=== PATIENT | female | born 1940 | race Caucasian/White ===

== ENCOUNTER 2016-05-25 20:10 | Emergency (ER) | payer OTHER, MEDICARE ==
[2016-05-25 20:21] VITALS: BP 138/56; PULSE 74; TEMP 98.8; BMI 22.6
--- NOTE | 2016-05-25 21:58 | PDOC ---
History of Present Illness - General Chief Complaint: Choking Sensation Stated Complaint: CHOKING SENSATION Time Seen by Provider: 05/25/16 21:28 History Source: Patient Exam Limitations: No Limitations - History of Present Illness Initial Comments: 05/25/16 21:53 75yo Female patient presented to ED by c/o foreign body stuck in throat. states this frequently happens, and patient has been scoped by Dr. Auguste (GI) in the past, he also reports that her esophagus has been stretched and cannot be stretched anymore. report patient has progressive Dementia and has had trouble swallowing. He has cut her food into very fine pieces and patient still struggles with swallowing. reports symptoms began around 8pm tonight. Timing/Duration: 1-3 hours Severity: mild Modifying Factors: worse with: cold therapy, eating, immobilization, medication , movement, rest, other Associated Symptoms: reports: denies symptoms Past History - Travel Traveled outside of the country in the last 30 days: No Close contact w/someone who was outside of country & ill: No - Past Medical History Allergies/Adverse Reactions: Allergies Allergy/AdvReac Type Severity Reaction Status Date / Time prochlorperazine edisylate Allergy Intermediate Verified 05/25/16 20:17 [From Compazine] Home Medications: Ambulatory Orders Budesonide/Formeterol Fumarate [SYMBICORT 80/4.5mcg -] 1 inh PO BID 12/08/15 Gabapentin [Neurontin -] 100 mg PO Q8H 12/08/15 Levothyroxine [Synthroid -] 50 mcg PO DAILY 12/08/15 Montelukast Na [Singulair -] 10 mg PO HS 12/08/15 Paroxetine HCl 40 mg PO HS 12/08/15 Risperidone [Risperidone Odt] 0.25 mg PO TID 12/08/15 Rosuvastatin Calcium [Crestor] 20 mg PO HS 12/08/15 Amlodipine Besylate [Norvasc -] 2.5 mg PO DAILY 02/16/16 Divalproex Sodium 125 mg PO QID 02/16/16 Anemia: No Asthma: No Cancer: No Cardiac Disorders: No CVA: Yes (mini stroke) COPD: Yes CHF: No Dementia: Yes Diabetes: No GI Disorders: Yes (HIATAL HERNIA, gerd) Disorders: No HTN: Yes (no meds at present) Hypercholesterolemia: Yes Liver Disease: No Seizures: No Thyroid Disease: Yes - Surgical History Abdominal Surgery: No Appendectomy: Yes Cardiac Surgery: No Cholecystectomy: No Lung Surgery: No Neurologic Surgery: (BL ENDARTERECTOMY) Orthopedic Surgery: Yes (neck surgery) - Immunization History Td Vaccination: Yes Immunization Up to Date: Yes - Psycho/Social/Smoking Cessation Hx Anxiety: Yes Suicidal Ideation: No Smoking Status: No Smoking History: Former smoker Years of Tobacco Use: 40 Have you smoked in the past 12 months: No Number of Cigarettes Smoked Daily: 0 If you are a former smoker, when did you quit?: 1YR Cigars Per Day: 0 Information on smoking cessation initiated: No 'Breaking Loose' booklet given: 04/27/12 Hx Alcohol Use: No Drug/Substance Use Hx: No Substance Use Type: None Hx Substance Use Treatment: No Review of Systems - Review of Systems Able to Perform ROS?: Yes Is the patient limited Haitian proficient: Yes Constitutional: No: Fever HEENTM: Yes: Difficulty Swallowing. No: Throat Pain, Throat Swelling Respiratory: No: Cough, Orthopnea, Shortness of Breath Cardiac (ROS): No: Chest Pain, Edema ABD/GI: No: Diarrhea, Nausea, Vomiting : No: Dysuria Musculoskeletal: No: Back Pain Integumentary: No: Rash Neurological: No: Numbness, Tingling, Dizziness All Other Systems: Reviewed and Negative *Physical Exam - Vital Signs Last Vital Signs Temp Pulse Resp BP Pulse Ox 98.8 F 74 18 138/56 92 L 05/25/16 20:19 05/25/16 20:19 05/25/16 20:19 05/25/16 20:19 05/25/16 20:19 - Physical Exam General Appearance: Yes: Thin HEENT: positive: Normal ENT Inspection, Pharynx Normal Neck: positive: Trachea midline, Supple Respiratory/Chest: positive: Lungs Clear, Decreased Breath Sounds, Other ( Likely due to poor inspiratory effort.) Cardiovascular: positive: Regular Rhythm, Regular Rate Gastrointestinal/Abdominal: positive: Normal Bowel Sounds, Soft Musculoskeletal: positive: Normal Inspection Extremity: positive: Normal Capillary Refill, Normal Inspection, Normal Range of Motion Integumentary: positive: Dry, Warm, Pale Neurologic: positive: Alert, Normal Mood/Affect, Normal Response ED Treatment Course - RADIOLOGY Radiology Studies Ordered: Category Date Time Status CHEST PA & LAT [RAD] Stat Radiology 05/25/16 21:38 Ordered NECK SOFT TISSUE [RAD] Stat Radiology 05/25/16 21:38 Ordered Medical Decision Making - Medical Decision Making 05/25/16 23:27 PATIENT GIVEN PO CHALLENGE. PATIENT TOLERATED 2 CUPS OF APPLE JUICE WITHOUT CHOKING OR TROUBLE MANAGING SALIVA. *DC/Admit/Observation/Transfer Diagnosis at time of Disposition: Foreign body in pharynx Qualifiers: Encounter type: initial encounter Qualified Code(s): T17.208A - Unspecified foreign body in pharynx causing other injury, initial encounter - Discharge Dispostion Disposition: HOME Condition at time of disposition: Good Admit: No - Patient Instructions Printed Discharge Instructions: Oropharyngeal Dysphagia Additional Instructions: FOLLOW UP WITH YOUR GASTOENTEROLOGIST THIS WEEK. CALL TO SCHEDULE APPOINTMENT. YOU SHOULD ALSO FOLLOW UP WITH A SPEECH PATHOLOGIST TO DETERMINE THE CONSISTENCY OF FOOD YOUR SHOULD BE EATING. SHE MAY NEED PUREE FOODS. MONITOR FOR FEVER, COUGH, OR ANY OTHER CONCERNS AND RETURN FOR FURTHER EVALUATION. Print Language: VIETNAMESE
== END 2016-05-25 23:44 | disposition home or self-care (01) ==
LOC: JER 20:10
DX: T17.208A Unspecified foreign body in pharynx causing other injury, initial encounter (principal); X58.XXXA Exposure to other specified factors, initial encounter; Y93.9 Activity, unspecified; Y92.9 Unspecified place or not applicable; F03.90 Unspecified dementia, unspecified severity, without behavioral disturbance, psychotic disturbance, mood disturbance, and anxiety; Z86.73 Personal history of transient ischemic attack (TIA), and cerebral infarction without residual deficits; J44.9 Chronic obstructive pulmonary disease, unspecified; K44.9 Diaphragmatic hernia without obstruction or gangrene; K21.9 Gastro-esophageal reflux disease without esophagitis; I10 Essential (primary) hypertension; E78.00 Pure hypercholesterolemia, unspecified; E07.9 Disorder of thyroid, unspecified; Z87.891 Personal history of nicotine dependence
CPT/HCPCS: 70360-TC; 71020-TC; 99281-25

== ENCOUNTER 2016-08-06 00:03 | Inpatient (IN) | payer OTHER, MEDICARE ==
--- NOTE | 2016-08-06 00:47 | PDOC ---
History of Present Illness <ShakiraHollyDenis dean - Last Filed: 08/06/16 01:00> - General History Source: Spouse ( ) Exam Limitations: Dementia - History of Present Illness Initial Comments: 08/06/16 00:59 The patient is a 76 year old female with significant past medical history of depression, stricture, stroke, COPD, dementia, GERD, hernia, hypertension, hyperlipidemia, and hypothyroidism who presents to the ED BIBA from home with laceration on right cheek s/p unwitnessed fall. As per , at bedside, patient normally has a unsteady gait at baseline, however today she has been falling more often. was able to catch her from her falls, however her last fall, he found her on the floor with a laceration on her right cheek. LOC unknown. informed me that he can no longer can provide care for the patient anymore and would like to place patient in a usp facility. He states attempting to reach out to psychiatric social worker and was able to have help for only 3 months. Allergies: Prochlorperazine edisylate Social History: No alcohol, tobacco, or drug use reported. Past Surgical History: BL ENDARTERECTOMY, Hiatal hernia, appendectomy PCP: Dr. Eliecer Castellano GI: Dr. Mazin Auguste <April Marino - Last Filed: 08/06/16 04:29> - General Chief Complaint: Injury Stated Complaint: FALL Time Seen by Provider: 08/06/16 00:35 Past History - Past Medical History Anemia: No Asthma: No Cancer: No Cardiac Disorders: No CVA: Yes (mini stroke) COPD: Yes CHF: No Dementia: Yes Diabetes: No GI Disorders: Yes (HIATAL HERNIA, gerd) Disorders: No HTN: Yes (no meds at present) Hypercholesterolemia: Yes Liver Disease: No Seizures: No Thyroid Disease: Yes - Surgical History Abdominal Surgery: No Appendectomy: Yes Cardiac Surgery: No Cholecystectomy: No Lung Surgery: No Neurologic Surgery: (BL ENDARTERECTOMY) Orthopedic Surgery: Yes (neck surgery) - Immunization History Td Vaccination: Yes Immunization Up to Date: Yes - Psycho/Social/Smoking Cessation Hx Anxiety: Yes Suicidal Ideation: No Smoking Status: No Smoking History: Former smoker Years of Tobacco Use: 40 Have you smoked in the past 12 months: No Number of Cigarettes Smoked Daily: 0 If you are a former smoker, when did you quit?: 1YR Cigars Per Day: 0 Information on smoking cessation initiated: No 'Breaking Loose' booklet given: 04/27/12 Hx Alcohol Use: No Drug/Substance Use Hx: No Substance Use Type: None Hx Substance Use Treatment: No <Denis Camacho - Last Filed: 08/06/16 01:00> <April Marino - Last Filed: 08/06/16 04:29> - Past Medical History Allergies/Adverse Reactions: Allergies Allergy/AdvReac Type Severity Reaction Status Date / Time prochlorperazine edisylate Allergy Intermediate Verified 08/06/16 00:15 [From Compazine] Home Medications: Ambulatory Orders Budesonide/Formeterol Fumarate [SYMBICORT 80/4.5mcg -] 1 inh PO BID 12/08/15 Gabapentin [Neurontin -] 100 mg PO Q8H 12/08/15 Levothyroxine [Synthroid -] 50 mcg PO DAILY 12/08/15 Montelukast Na [Singulair -] 10 mg PO HS 12/08/15 Paroxetine HCl 40 mg PO HS 12/08/15 Rosuvastatin Calcium [Crestor] 20 mg PO HS 12/08/15 Amlodipine Besylate [Norvasc -] 2.5 mg PO DAILY 02/16/16 Divalproex Sodium 125 mg PO QID 02/16/16 Mirtazapine [Remeron -] 7.5 mg PO HS 08/06/16 Review of Systems - Review of Systems Able to Perform ROS?: No Comments:: 08/06/16 00:59 Unable to obtain secondary to dementia <April Marino - Last Filed: 08/06/16 04:29> *Physical Exam - Vital Signs Last Vital Signs Temp Pulse Resp BP Pulse Ox 98.1 F 92 H 18 148/79 95 08/06/16 00:15 08/06/16 00:15 08/06/16 00:15 08/06/16 00:15 08/06/16 00:15 - Physical Exam General Appearance: Yes: Nourished, Appropriately Dressed. No: Apparent Distress HEENT: positive: Normal ENT Inspection, Other (DRY MUCOSAE) Neck: positive: Supple. negative: Tender Respiratory/Chest: positive: Lungs Clear, Normal Breath Sounds. negative: Respiratory Distress Cardiovascular: positive: Regular Rhythm, Regular Rate Gastrointestinal/Abdominal: positive: Normal Bowel Sounds, Soft. negative: Tender Musculoskeletal: positive: Normal Inspection. negative: Vertebral Tenderness Integumentary: positive: Normal Color, Other (1 CM LAC RT MALLAR AREA) <Denis Camacho - Last Filed: 08/06/16 01:00> - Vital Signs Last Vital Signs Temp Pulse Resp BP Pulse Ox 98.1 F 92 H 18 148/79 95 08/06/16 00:15 08/06/16 00:15 08/06/16 00:15 08/06/16 00:15 08/06/16 00:15 <April Marino - Last Filed: 08/06/16 04:29> Heart Score/ECG Review - ECG Impressions Comment:: 08/06/16 02:23 NSR @86bpm Nonspecific T wave abnormality Prolonged QT Abnormal ECG <April Marino - Last Filed: 08/06/16 04:29> ED Treatment Course - LABORATORY CBC & Chemistry Diagram: 08/06/16 01:24 08/06/16 01:24 - RADIOLOGY Radiograph Interpretation: 08/06/16 02:07 EXAM: CT brain without contrast Reviewed by Imaging lead generation marketing manager: FINDINGS: The ventricular system is midline and nondilated. There is mild cortical atrophy and small vessel ischemic disease. There is no bleed, mass, extra-axial fluid collection or mass effect. Right facial laceration is noted. No skull fracture or skull lesion is identified. The visualized paranasal sinuses and mastoid air cells are clear. IMPRESSION: No acute intracranial pathology. <April Marino - Last Filed: 08/06/16 04:29> Progress Note - Progress Note Progress Note: RAPID DETERIORATION. MULTIPLE FALLS, NO HELP AT HOME D/W PMD, ADMIT <Denis Camacho - Last Filed: 08/06/16 01:00> Medical Decision Making - Medical Decision Making 08/06/16 00:[address] Eliecer Castellano (via answering service) at 24:56 Awaiting call back 08/06/16 24:58 Patient's case discussed with Dr. Eliecer Castellano at 24:58 <April Marino - Last Filed: 08/06/16 04:29> *DC/Admit/Observation/Transfer - Discharge Dispostion Admit: Yes <Denis Camacho - Last Filed: 08/06/16 01:00> - Attestations Scribe Attestion: 08/06/16 00:59 Documentation prepared by April Marino, acting as medical office assistant instructor for Denis Camacho MD <April Marino - Last Filed: 08/06/16 04:29> Diagnosis at time of Disposition: Dehydration, FTT (failure to thrive) in adult - Discharge Dispostion Condition at time of disposition: Stable
[2016-08-06] MEDS ORDERED: SODIUM CHLORIDE 1,000 ML IV STA (00:55)
[2016-08-06 01:39] LABS: MCH 29.7 pg (25.7-33.7); MCHC 33.9 g/dl (32.0-36.0); MEAN CELL VOLUME 87.8 fl (80-96); MEAN PLT VOLUME 7.5 fl (7.5-11.1); PLATELET COUNT 314 K/MM3 (134-434); RDW 13.1 % (11.6-15.6); WHITE BLOOD COUNT 7.7 K/mm3 (4.0-10.0)
[2016-08-06 01:58] LABS: CALCIUM 8.6 mg/dL (8.5-10.1); CREATININE 1.1 mg/dL (0.55-1.02)
[2016-08-06] MEDS: KCL 10 MEQ IVPB 100 ML IVPB SCH ×10 (02:02→23:54)
[2016-08-06] MEDS ORDERED: KCL 10 MEQ IVPB 100 ML IVPB ONE (02:04)
[2016-08-06] MEDS ORDERED: LIDOCAINE 1%/EPI 1:100000 (50 ML MULTI DOSE VIAL) ONE (02:43)
[2016-08-06] MEDS ORDERED: HALOPERIDOL LACTATE 5 MG/ML IM ONE (03:36)
[2016-08-06] MEDS ORDERED: HALOPERIDOL LACTATE 5 MG/ML ONE (03:39)
[2016-08-06 04:40] VITALS: BMI 21.7
--- NOTE | 2016-08-06 05:25 | HOSP ---
Subjective - Review of Symptoms Subjective: Was paged by the nurse and informed that patient requires a vest restrain order. A/c to the nurse, she spoke with Dr. Castellano who gave telephone order for vest restrain. On assessment of the patient, she is a high risk for fall. Admitted s/p mechanical fall with laceration on the right cheek and placement in the custodial. Vest restrain order placed since patient is high risk of fall and seems to be confused. Physical Examination Vital Signs: Vital Signs Temperature 98.7 F 08/06/16 04:24 Pulse Rate 88 08/06/16 04:24 Respiratory Rate 18 08/06/16 04:24 Blood Pressure 128/72 08/06/16 04:24 O2 Sat by Pulse Oximetry (%) 96 08/06/16 04:24 Labs: CBC, BMP 08/06/16 01:24 08/06/16 01:24 Visit type - Emergency Visit Emergency Visit: Yes ED Registration Date: 08/06/16 Care time: The patient presented to the Emergency Department on the above date and was hospitalized for further evaluation of their emergent condition. - New Patient This patient is new to me today: Yes Date on this admission: 08/06/16 - Critical Care Critical Care patient: No
[2016-08-06] MEDS ORDERED: SODIUM CHLORIDE 1,000 ML IV SCH (05:30)
[2016-08-06 08:45] LABS: MAGNESIUM 2.1 mg/dL (1.8-2.4)
--- NOTE | 2016-08-06 09:34 | EKG ---
Test Reason : Blood Pressure : / mmHG Vent. Rate : 086 BPM Atrial Rate : 086 BPM P-R Int : 176 ms QRS Dur : 082 ms QT Int : 398 ms P-R-T Axes : 075 081 034 degrees QTc Int : 476 ms POOR DATA QUALITY, INTERPRETATION MAY BE ADVERSELY AFFECTED NORMAL SINUS RHYTHM NONSPECIFIC T WAVE ABNORMALITY PROLONGED QT ABNORMAL ECG WHEN COMPARED WITH ECG OF 26-MAR-2014 12:46, NO SIGNIFICANT CHANGE WAS FOUND Confirmed by MELISSA MIMS MD ([id number]) on 08/06/2016 9:34:06 AM Referred By: Confirmed By:MELISSA MIMS MD
[2016-08-06] MEDS ORDERED: PT OWN MED DRAWER 7, Y5N ONE ×2 (09:36→22:04)
[2016-08-06] MEDS: LEVOTHYROXINE NA 50 MCG TABLET (FP) PO SCH (09:47)
[2016-08-06] MEDS: BUDESONIDE/FORMETEROL FUMARATE 80/4.5 mcg INHALER IH SCH ×2 (09:50→22:05)
[2016-08-06] MEDS: DIVALPROEX SODIUM 125 MG TABLET E.C. (FP) PO SCH ×3 (09:50→17:23)
[2016-08-06] MEDS: GABAPENTIN 100 MG CAPSULE (FP) PO SCH ×3 (09:50→22:02)
[2016-08-06] MEDS: amLODIPine BESYLATE 2.5 MG TABLET (FP) PO SCH (09:50)
--- NOTE | 2016-08-06 10:54 | HP ---
Admitting History and Physical - Primary Care Physician PCP: Loren Castellano S - Admission Chief Complaint: s/p fall, severe hypoK History of Present Illness: The patient is a 76 year old female with significant past medical history of depression, stroke, COPD, dementia, GERD, hernia, hypertension, hyperlipidemia, and hypothyroidism who presents to the ED BIBA from home with laceration on right cheek s/p unwitnessed fall. As per , patient normally has a unsteady gait at baseline, however she has been falling more often. was able to catch her from her falls, however her last fall, he found her on the floor with a laceration on her right cheek. LOC unknown. can no longer can provide care for the patient and would like to place patient in a group home facility. He said he attempted to reach out to certified social workers in health care and was able to have help for only 3 months. History Source: Family Member, Medical Record Limitations to Obtaining History: Clinical Condition - Past Medical History ...: No - Smoking History Smoking history: Former smoker Have you smoked in the past 12 months: No Aproximately how many cigarettes per day: 0 If you are a former smoker, when did you quit?: 1YR - Alcohol/Substance Use Hx Alcohol Use: No History of Substance Use: reports: None - Social History Usual Living Arrangement: Yes: With Spouse ADL: Independent History of Recent Travel: No Home Medications - Allergies Allergies/Adverse Reactions: Allergies Allergy/AdvReac Type Severity Reaction Status Date / Time prochlorperazine edisylate Allergy Intermediate Verified 08/06/16 00:15 [From Compazine] - Home Medications Home Medications: Ambulatory Orders Budesonide/Formeterol Fumarate [SYMBICORT 80/4.5mcg -] 1 inh PO BID 12/08/15 Gabapentin [Neurontin -] 100 mg PO Q8H 12/08/15 Levothyroxine [Synthroid -] 50 mcg PO DAILY 12/08/15 Montelukast Na [Singulair -] 10 mg PO HS 12/08/15 Paroxetine HCl 40 mg PO HS 12/08/15 Rosuvastatin Calcium [Crestor] 20 mg PO HS 12/08/15 Amlodipine Besylate [Norvasc -] 2.5 mg PO DAILY 02/16/16 Divalproex Sodium 125 mg PO QID 02/16/16 Mirtazapine [Remeron -] 7.5 mg PO HS 08/06/16 Family Disease History - Family Disease History Family History: Unremarkable Review of Systems - Review of Systems Constitutional: reports: Lethargy. denies: Chills, Fever Eyes: denies: Eye Pain HENT: denies: Ear Pain Neck: denies: Stiffness, Swollen Glands Cardiovascular: denies: Edema, Shortness of Breath Respiratory: denies: Cough, Wheezing Gastrointestinal: denies: Constipation, Diarrhea, Vomiting Genitourinary: denies: Hematuria Musculoskeletal: denies: Joint Swelling Integumentary: denies: Bruising, Rash Neurological: reports: Unsteady Gait, Weakness (general). denies: Seizure, Syncope Hematology/Lymphatic: denies: Easily Bruised, Excessive Bleeding, Swollen Glands Psychiatric: reports: Altered Sleep Pattern Physical Examination Vital Signs: Vital Signs Temperature 98.7 F 08/06/16 04:24 Pulse Rate 88 08/06/16 04:24 Respiratory Rate 18 08/06/16 04:24 Blood Pressure 128/72 08/06/16 04:24 O2 Sat by Pulse Oximetry (%) 96 08/06/16 04:24 Constitutional: Yes: No Distress, Calm Eyes: Yes: Conjunctiva Clear HENT: Yes: Other (see above) Neck: Yes: Supple. No: Tenderness Cardiovascular: Yes: Regular Rate and Rhythm Respiratory: Yes: CTA Bilaterally Gastrointestinal: Yes: Soft. No: Distention, Tenderness Renal/: No: Hematuria Musculoskeletal: No: Joint Stiffness, Joint Swelling Extremities: No: Cold, Cool, Cyanosis, Erythema Edema: No Peripheral Pulses WNL: Yes Integumentary: No: Rash, Venous Stasis Changes Neurological: Yes: Alert. No: Oriented ...Motor Strength: WNL (general weakness) Psychiatric: Yes: Alert. No: Oriented, Agitated Labs: CBC, BMP 08/06/16 01:24 08/06/16 01:24 Imaging - Results Chest X-ray: Report Reviewed Other: Report Reviewed Assessment/Plan The patient is a 76 year old female with significant past medical history of depression, stroke, COPD, dementia, GERD, hernia, hypertension, hyperlipidemia, and hypothyroidism who presents to the ED BIBA from home with laceration on right cheek s/p unwitnessed fall. Patient normally has a unsteady gait at baseline, however she has been falling more often. can no longer can provide care for the patient and would like to place patient in a group home facility. Found to have severe hypoKalemia; started on IV K replacemnt in ER and continued on the floor admit to INPT neurology eval correct K; f/u labs PT rehab and CM eval for placement falls decubs DVT and aspiration PFX d/w staff; prognosis guarded dr Ramon will cover 08/07-08/09
--- NOTE | 2016-08-06 15:13 | CON.NEURO ---
Consult Consult Specialty:: NEUROLOGY Reason for Consultation:: alterede mental status, fall - History of Present Illness History of Present Illness: 76 year old female with past medical history of depression, stroke, COPD, dementia, GERD, hernia, hypertension, hyperlipidemia, and hypothyroidism was admitted after a fall at home. The brought her in with a laceration on the right cheek s/p unwitnessed fall. Per family the patient has a unsteady gait at baseline, however today she has been falling more often. The also informed the PMD at the admission that he can't take care of the patient at home anymore and he needs help with placement in a senior living. - Past Medical History ...: No - Alcohol/Substance Use Hx Alcohol Use: No - Smoking History Smoking history: Former smoker Have you smoked in the past 12 months: No Aproximately how many cigarettes per day: 0 If you are a former smoker, when did you quit?: 1YR Home Medications - Allergies Allergies/Adverse Reactions: Allergies Allergy/AdvReac Type Severity Reaction Status Date / Time prochlorperazine edisylate Allergy Intermediate Verified 08/06/16 00:15 [From Compazine] - Home Medications Home Medications: Ambulatory Orders Budesonide/Formeterol Fumarate [SYMBICORT 80/4.5mcg -] 1 inh PO BID 12/08/15 Gabapentin [Neurontin -] 100 mg PO Q8H 12/08/15 Levothyroxine [Synthroid -] 50 mcg PO DAILY 12/08/15 Montelukast Na [Singulair -] 10 mg PO HS 12/08/15 Paroxetine HCl 40 mg PO HS 12/08/15 Rosuvastatin Calcium [Crestor] 20 mg PO HS 12/08/15 Amlodipine Besylate [Norvasc -] 2.5 mg PO DAILY 02/16/16 Divalproex Sodium 125 mg PO QID 02/16/16 Mirtazapine [Remeron -] 7.5 mg PO HS 08/06/16 Review of Systems - Review of Systems Constitutional: reports: No Symptoms Eyes: reports: No Symptoms HENT: reports: No Symptoms Neck: reports: No Symptoms Cardiovascular: reports: No Symptoms Respiratory: reports: No Symptoms Gastrointestinal: reports: No Symptoms Genitourinary: reports: No Symptoms Breasts: reports: No Symptoms Reported Musculoskeletal: reports: No Symptoms Neurological: reports: Pre-Existing Deficit, Unsteady Gait Endocrine: reports: No Symptoms Hematology/Lymphatic: reports: No Symptoms Psychiatric: reports: No Symptoms, Altered Sleep Pattern Physical Exam-Neuro Vital Signs: Vital Signs Temperature 98.5 F 08/06/16 14:00 Pulse Rate 70 08/06/16 14:00 Respiratory Rate 17 08/06/16 14:00 Blood Pressure 119/92 08/06/16 09:00 O2 Sat by Pulse Oximetry (%) 96 08/06/16 09:00 Constitutional: Yes: No Distress, Calm Neck: Yes: Supple, Trachea Midline Cardiovascular: Yes: Regular Rate and Rhythm, S1, S2 Respiratory: Yes: Regular, CTA Bilaterally Gastrointestinal: Yes: Normal Bowel Sounds, Soft Musculoskeletal: Yes: WNL Edema: No Labs: CBC, BMP 08/06/16 01:24 - Neuro Exam Eyes: Yes: PERRLA Speech: Other (patient is sleeping comfortable in bed, at pain stimulation withdraw all four limbs equally. Per nurse she was awake whole night and talking with the nurses at the nurse station.) Dominant Hand: Right Cranial Nerves II-XII Intact: Yes Gag: Present DTR's: 1+ Left Bicep, 1+ Right Bicep, 1+ Left Tricep, 1+ Right Tricep, 1+ Left Brachioradialis, 1+ Right Brachioradialis, 1+ Left Achilles, 1+ Right Achilles Babinski: Absent Response to light touch: Normal Response to pain prick: Normal Motor Strength: 4/5: Left Arm, Right Arm, Left Leg, Right Leg Gait: Deferred NIH Stroke Scale - Total Score NIH Stroke Scale Score: 0 Imaging - Results Cat Scan: Report Reviewed, Image Reviewed Other: Report Reviewed, Image Reviewed Problem List - Problems (1) Dehydration Code(s): E86.0 - DEHYDRATION (2) Gait difficulty Code(s): R26.9 - UNSPECIFIED ABNORMALITIES OF GAIT AND MOBILITY (3) Dementia Code(s): F03.90 - UNSPECIFIED DEMENTIA WITHOUT BEHAVIORAL DISTURBANCE Assessment/Plan 76 year old female with past medical history of depression, stroke, COPD, dementia, GERD, hernia, hypertension, hyperlipidemia, and hypothyroidism was admitted after a fall at home. The brought her in with a laceration on the right cheek s/p unwitnessed fall. Per family the patient has a unsteady gait at baseline, however today she has been falling more often. The also informed the PMD at the admission that he can't take care of the patient at home anymore and he needs help with placement in a senior living. The patient is lethargic, sleepy, arousable at pain. Not following commands. Per nurse she was awake all night at the nursing station and she got asleep this morning. CT head is unremarkable. It is negative for bleed. Impression: metabolic encephalopathy, dementia. Plan: - dementia work up: check B12, folate, B1, B2, B6 levels. - CT head done - EEG to rule out seizures - correct electrolytes. - PT/OT /ST evaluation - [employer] school social science teacher consult for placement. - start Namenda 5mg. po bid. Increase to 10mg. po. bid in three weeks. Follow up as outpatient in Neurology Office in 6 weeks. Thank you for this kind referral.
[2016-08-06 15:23] LABS: CALCIUM 8.1 mg/dL (8.5-10.1); CREATININE 0.9 mg/dL (0.55-1.02)
[2016-08-06 20:30] LABS: CALCIUM 8.3 mg/dL (8.5-10.1); CREATININE 0.9 mg/dL (0.55-1.02)
[2016-08-06] MEDS ORDERED: POTASSIUM CHLORIDE TABS 20 MEQ TABLET.ER (FP) PO SCH (21:00)
[2016-08-06] MEDS ORDERED: ROSUVASTATIN CA 10 MG TABLET (FP) ONE (21:58)
[2016-08-06] MEDS ORDERED: POTASSIUM CHLORIDE 40 MEQ/30 ML UNIT DOSE CUP PO ONE (22:00)
[2016-08-06] MEDS: PARoxetine HCL 20 MG TABLET (FP) PO SCH (22:01)
[2016-08-06] MEDS: MIRTAZAPINE 15 MG TABLET (FP) PO SCH (22:02)
[2016-08-06] MEDS: MEMANTINE HCL 5 MG TABLET (UD) PO SCH (22:02)
[2016-08-06] MEDS: MONTELUKAST NA 10 MG TABLET PO SCH (22:03)
[2016-08-06] MEDS: ROSUVASTATIN CA 20 MG TABLET (FP) PO SCH (22:03)
[2016-08-06] MEDS: SODIUM CHLORIDE 1,000 ML with POTASSIUM CHLORIDE 10 MEQ IV SCH (23:09)
[2016-08-07] MEDS: DIVALPROEX SODIUM 125 MG TABLET E.C. (FP) PO SCH ×4 (00:13→17:58)
[2016-08-07] MEDS ORDERED: PT OWN MED DRAWER 7, Y5N ONE ×4 (06:12→17:55)
[2016-08-07] MEDS: GABAPENTIN 100 MG CAPSULE (FP) PO SCH ×2 (06:45→13:27)
[2016-08-07] MEDS: LEVOTHYROXINE NA 50 MCG TABLET (FP) PO SCH (06:46)
[2016-08-07 08:54] LABS: BASOPHIL 0.4 % (0-2.0); EOSINOPHIL 0.9 % (0-4.5); MCH 29.8 pg (25.7-33.7); MCHC 34.3 g/dl (32.0-36.0); MEAN CELL VOLUME 86.8 fl (80-96); MEAN PLT VOLUME 7.3 fl (7.5-11.1); NEUTROPHILS 81.6 % (42.8-82.8); PLATELET COUNT 342 K/MM3 (134-434); WHITE BLOOD COUNT 8.8 K/mm3 (4.0-10.0)
[2016-08-07] MEDS: amLODIPine BESYLATE 2.5 MG TABLET (FP) PO SCH (09:12)
[2016-08-07] MEDS: MEMANTINE HCL 5 MG TABLET (UD) PO SCH (09:12)
[2016-08-07] MEDS: BUDESONIDE/FORMETEROL FUMARATE 80/4.5 mcg INHALER IH SCH (09:12)
[2016-08-07 09:58] LABS: ALBUMIN 2.7 g/dl (3.4-5.0); ALK PHOS 91 U/L (45-117); ANION GAP 11 (8-16); BILIRUBIN,TOTAL 0.6 mg/dL (0.2-1.0); CALCIUM 8.6 mg/dL (8.5-10.1); CO2 25 mmol/L (21-32); CREATININE 0.9 mg/dL (0.55-1.02); GLUCOSE,RANDOM 104 mg/dL (74-106); SGOT/AST 35 U/L (15-37); SGPT/ALT 16 U/L (12-78); TOT PROT 6.3 g/dl (6.4-8.2)
--- NOTE | 2016-08-07 11:48 | PN ---
Progress Note, Physician History of Present Illness: Pt. w/o fever, cough, SOB, CP, abd pain - Current Medication List Current Medications: Active Medications Amlodipine Besylate (Norvasc -) 2.5 mg PO DAILY [facility] Last Admin: 08/07/16 09:12 Dose: 2.5 mg Budesonide/Formoterol Fumarate (Symbicort 80/4.5mcg -) 1 puff IH BID [facility] Last Admin: 08/07/16 09:12 Dose: 1 inh Divalproex Sodium (Depakote -) 125 mg PO Q6HPO [facility] Last Admin: 08/07/16 06:46 Dose: 125 mg Gabapentin (Neurontin -) 100 mg PO TID [facility] Last Admin: 08/07/16 06:45 Dose: 100 mg Heparin Sodium (Porcine) (Heparin -) 5,000 unit SQ BID [facility] Potassium Chloride 10 meq/ (Sodium Chloride) 1,005 mls @ 50 mls/hr IV Q20H [facility] Last Admin: 08/06/16 23:09 Dose: 50 mls/hr Potassium Chloride (Potassium Chloride 10 Meq Premix Ivpb -) 100 mls @ 100 mls/ hr IVPB Q1H [facility] Stop: 08/07/16 14:59 Potassium Chloride (Potassium Chloride 10 Meq Premix Ivpb -) 100 mls @ 100 mls/ hr IVPB Q1H [facility] Stop: 08/07/16 14:59 Levothyroxine Sodium (Synthroid -) 50 mcg PO DAILY@0700 [facility] Last Admin: 08/07/16 06:46 Dose: 50 mcg Memantine (Namenda -) 5 mg PO BID [facility] Last Admin: 08/07/16 09:12 Dose: 5 mg Mirtazapine (Remeron -) 7.5 mg PO [facility] Last Admin: 08/06/16 22:02 Dose: 7.5 mg Montelukast Sodium (Singulair -) 10 mg PO [facility] Last Admin: 08/06/16 22:03 Dose: 10 mg Paroxetine HCl (Paxil -) 40 mg PO [facility] Last Admin: 08/06/16 22:01 Dose: 40 mg Rosuvastatin Calcium (Crestor -) 20 mg PO [facility] Last Admin: 08/06/16 22:03 Dose: 20 mg - Objective Vital Signs: Vital Signs Temperature 98.1 F 08/07/16 07:59 Pulse Rate 88 03/18/17 07:59 Respiratory Rate 20 08/07/16 07:59 Blood Pressure 161/82 08/07/16 07:59 O2 Sat by Pulse Oximetry (%) 95 08/07/16 09:00 Constitutional: Yes: No Distress, Calm Cardiovascular: Yes: Regular Rate and Rhythm, S1, S2 Respiratory: Yes: Regular, CTA Bilaterally. No: Rales Gastrointestinal: Yes: Normal Bowel Sounds, Soft. No: Palpable Mass, Tenderness Edema: No Neurological: Yes: Alert, Oriented Labs: CBC, BMP 08/07/16 07:45 08/07/16 07:45 Problem List - Problems (1) Fall Assessment/Plan: Neuro consult appreciated Code(s): W19.XXXA - UNSPECIFIED FALL, INITIAL ENCOUNTER (2) Head trauma Code(s): S09.90XA - UNSPECIFIED INJURY OF HEAD, INITIAL ENCOUNTER (3) Hypokalemia Assessment/Plan: Severe Hypokalemia Replete and f/u K+, Mg++ Code(s): E87.6 - HYPOKALEMIA (4) Impaired gait Code(s): R26.9 - UNSPECIFIED ABNORMALITIES OF GAIT AND MOBILITY (5) Dementia Code(s): F03.90 - UNSPECIFIED DEMENTIA WITHOUT BEHAVIORAL DISTURBANCE (6) Hypertension Code(s): I10 - ESSENTIAL (PRIMARY) HYPERTENSION Qualifiers: Hypertension type: other secondary hypertension Qualified Code(s): I15.8 - Other secondary hypertension (7) Hypothyroidism Assessment/Plan: To f/u labs Code(s): E03.9 - HYPOTHYROIDISM, UNSPECIFIED Assessment/Plan Am labs. Dr. Ramon will cover us from today (08/07/16) at noon until 08/10/16, 7 AM
[2016-08-07] MEDS: KCL 10 MEQ IVPB 100 ML IVPB SCH ×3 (11:56→14:47)
[2016-08-07] MEDS ORDERED: KCL 10 MEQ IVPB 100 ML IVPB SCH (12:00)
--- NOTE | 2016-08-07 12:50 | PN ---
Progress Note (short form) - Note Progress Note: Neurology 76 year old female with past medical history of depression, stroke, COPD, dementia, GERD, hernia, hypertension, hyperlipidemia, and hypothyroidism was admitted after a fall at home. The brought her in with a laceration on the right cheek s/p unwitnessed fall. Patient seen by Dr. Lr, currently in bed in no acute distress or active complaints. Active Medications Amlodipine Besylate (Norvasc -) 2.5 mg PO DAILY [facility] Last Admin: 08/07/16 09:12 Dose: 2.5 mg Budesonide/Formoterol Fumarate (Symbicort 80/4.5mcg -) 1 puff IH BID [facility] Last Admin: 08/07/16 09:12 Dose: 1 inh Divalproex Sodium (Depakote -) 125 mg PO Q6HPO [facility] Last Admin: 08/07/16 12:04 Dose: 125 mg Gabapentin (Neurontin -) 100 mg PO TID [facility] Last Admin: 08/07/16 06:45 Dose: 100 mg Heparin Sodium (Porcine) (Heparin -) 5,000 unit SQ BID [facility] Potassium Chloride 10 meq/ (Sodium Chloride) 1,005 mls @ 50 mls/hr IV Q20H [facility] Last Admin: 08/06/16 23:09 Dose: 50 mls/hr Potassium Chloride (Potassium Chloride 10 Meq Premix Ivpb -) 100 mls @ 100 mls/ hr IVPB Q1H [facility] Stop: 08/07/16 14:59 Last Admin: 08/07/16 11:56 Dose: 100 mls/hr Levothyroxine Sodium (Synthroid -) 50 mcg PO DAILY@0700 [facility] Last Admin: 08/07/16 06:46 Dose: 50 mcg Memantine (Namenda -) 5 mg PO BID [facility] Last Admin: 08/07/16 09:12 Dose: 5 mg Mirtazapine (Remeron -) 7.5 mg PO [facility] Last Admin: 08/06/16 22:02 Dose: 7.5 mg Montelukast Sodium (Singulair -) 10 mg PO [facility] Last Admin: 08/06/16 22:03 Dose: 10 mg Paroxetine HCl (Paxil -) 40 mg PO [facility] Last Admin: 08/06/16 22:01 Dose: 40 mg Rosuvastatin Calcium (Crestor -) 20 mg PO [facility] Last Admin: 08/06/16 22:03 Dose: 20 mg Last Vital Signs Temp Pulse Resp BP Pulse Ox 98.1 F 88 20 161/82 95 08/07/16 07:59 08/07/16 07:59 08/07/16 07:59 08/07/16 07:59 08/07/16 09:00 - Neuro Exam Eyes: Yes: PERRLA Speech: Other (patient is sleeping comfortable in bed, at pain stimulation withdraw all four limbs equally. Per nurse she was awake whole night and talking with the nurses at the nurse station.) Dominant Hand: Right Cranial Nerves II-XII Intact: Yes Gag: Present DTR's: 1+ Left Bicep, 1+ Right Bicep, 1+ Left Tricep, 1+ Right Tricep, 1+ Left Brachioradialis, 1+ Right Brachioradialis, 1+ Left Achilles, 1+ Right Achilles Babinski: Absent Response to light touch: Normal Response to pain prick: Normal Motor Strength: 4/5: Left Arm, Right Arm, Left Leg, Right Leg Gait: Deferred Imaging - Results Cat Scan: Report Reviewed, Image Reviewed Other: Report Reviewed, Image Reviewed Problem List - Problems (1) Dehydration Code(s): E86.0 - DEHYDRATION (2) Gait difficulty Code(s): R26.9 - UNSPECIFIED ABNORMALITIES OF GAIT AND MOBILITY (3) Dementia Code(s): F03.90 - UNSPECIFIED DEMENTIA WITHOUT BEHAVIORAL DISTURBANCE Assessment/Plan 76 year old female with past medical history of depression, stroke, COPD, dementia, GERD, hernia, hypertension, hyperlipidemia, and hypothyroidism was admitted after a fall at home. The brought her in with a laceration on the right cheek s/p unwitnessed fall. Patient seen by Dr. Lr, currently in bed in no acute distress or active complaints. Started on Namenda 5mg. po bid. Increase to 10mg. po. bid in three weeks. Follow up as outpatient in Neurology Office in 6 weeks.
[2016-08-07] MEDS ORDERED: ACETAMINOPHEN 325 MG TABLET (FP) PO PRN (16:56)
[2016-08-07] MEDS: SODIUM CHLORIDE 1,000 ML with POTASSIUM CHLORIDE 10 MEQ IV SCH (17:57)
[2016-08-08] MEDS ORDERED: ROSUVASTATIN CA 10 MG TABLET (FP) ONE ×2 (00:10→22:09)
[2016-08-08] MEDS ORDERED: PT OWN MED DRAWER 7, Y5N ONE ×7 (00:11→23:28)
[2016-08-08] MEDS: BUDESONIDE/FORMETEROL FUMARATE 80/4.5 mcg INHALER IH SCH ×3 (00:20→22:11)
[2016-08-08] MEDS: DIVALPROEX SODIUM 125 MG TABLET E.C. (FP) PO SCH ×5 (00:20→23:47)
[2016-08-08] MEDS: MONTELUKAST NA 10 MG TABLET PO SCH ×2 (00:20→22:11)
[2016-08-08] MEDS: ROSUVASTATIN CA 20 MG TABLET (FP) PO SCH ×2 (00:20→22:12)
[2016-08-08] MEDS: MEMANTINE HCL 5 MG TABLET (UD) PO SCH ×3 (00:20→22:11)
[2016-08-08] MEDS: HEPARIN NA (PORCINE) 5,000 UNITS/ML 1ML VIAL SQ SCH ×3 (00:20→22:12)
[2016-08-08] MEDS: GABAPENTIN 100 MG CAPSULE (FP) PO SCH ×4 (00:21→22:11)
[2016-08-08] MEDS: MIRTAZAPINE 15 MG TABLET (FP) PO SCH ×2 (00:21→22:12)
[2016-08-08] MEDS: PARoxetine HCL 20 MG TABLET (FP) PO SCH ×2 (00:21→22:11)
[2016-08-08] MEDS: LEVOTHYROXINE NA 50 MCG TABLET (FP) PO SCH ×2 (05:56→06:02)
[2016-08-08 07:22] LABS: BASOPHIL 0.3 % (0-2.0); EOSINOPHIL 3.2 % (0-4.5); MCH 29.6 pg (25.7-33.7); MCHC 33.8 g/dl (32.0-36.0); MEAN CELL VOLUME 87.7 fl (80-96); MEAN PLT VOLUME 7.4 fl (7.5-11.1); NEUTROPHILS 73.6 % (42.8-82.8); PLATELET COUNT 329 K/MM3 (134-434); RDW 13.3 % (11.6-15.6); WHITE BLOOD COUNT 7.8 K/mm3 (4.0-10.0)
[2016-08-08 08:12] LABS: ALBUMIN 2.3 g/dl (3.4-5.0); ANION GAP 11 (8-16); CALCIUM 8.2 mg/dL (8.5-10.1); CO2 25 mmol/L (21-32); GLUCOSE,RANDOM 86 mg/dL (74-106); MAGNESIUM 2.1 mg/dL (1.8-2.4)
[2016-08-08 08:24] LABS: ALK PHOS 80 U/L (45-117); BILIRUBIN,TOTAL 0.4 mg/dL (0.2-1.0); CREATININE 0.8 mg/dL (0.55-1.02); SGOT/AST 28 U/L (15-37); SGPT/ALT 14 U/L (12-78); THYROID STIMULATING HORMONE 1.25 uIU/ml (0.358-3.74); TOT PROT 5.5 g/dl (6.4-8.2)
[2016-08-08] MEDS: amLODIPine BESYLATE 2.5 MG TABLET (FP) PO SCH (10:01)
[2016-08-08 10:08] LABS: HEMATOCRIT 35.6 % (34.0-46.6)
[2016-08-08] MEDS: SODIUM CHLORIDE 1,000 ML with POTASSIUM CHLORIDE 10 MEQ IV SCH (14:42)
[2016-08-08] MEDS ORDERED: POTASSIUM CHLORIDE TABS 20 MEQ TABLET.ER (FP) PO ONE (15:15)
--- NOTE | 2016-08-08 22:27 | PN ---
Progress Note, Physician Chief Complaint: 76 yo female with dementia and frequent falls was brought to ER for admission with the goal of being admitted to a NH since is not able to take care of her anymore. The patient injured her face and sustained facial laceration after the fall. - Current Medication List Current Medications: Active Medications Acetaminophen (Tylenol -) 650 mg PO Q6H PRN PRN Reason: FEVER OR PAIN Amlodipine Besylate (Norvasc -) 2.5 mg PO DAILY [facility] Last Admin: 08/08/16 10:01 Dose: 2.5 mg Budesonide/Formoterol Fumarate (Symbicort 80/4.5mcg -) 1 puff IH BID [facility] Last Admin: 08/08/16 22:11 Dose: 1 inh Divalproex Sodium (Depakote -) 125 mg PO Q6HPO [facility] Last Admin: 08/08/16 17:07 Dose: 125 mg Gabapentin (Neurontin -) 100 mg PO TID [facility] Last Admin: 08/08/16 22:11 Dose: 100 mg Heparin Sodium (Porcine) (Heparin -) 5,000 unit SQ BID [facility] Last Admin: 08/08/16 22:12 Dose: 5,000 unit Potassium Chloride 10 meq/ (Sodium Chloride) 1,005 mls @ 50 mls/hr IV Q20H [facility] Last Admin: 08/08/16 14:42 Dose: 50 mls/hr Levothyroxine Sodium (Synthroid -) 50 mcg PO DAILY@0700 [facility] Last Admin: 08/08/16 06:02 Dose: Not Given Memantine (Namenda -) 5 mg PO BID [facility] Last Admin: 08/08/16 22:11 Dose: 5 mg Mirtazapine (Remeron -) 7.5 mg PO HS [facility] Last Admin: 08/08/16 22:12 Dose: 7.5 mg Montelukast Sodium (Singulair -) 10 mg PO HS [facility] Last Admin: 08/08/16 22:11 Dose: 10 mg Paroxetine HCl (Paxil -) 40 mg PO HS [facility] Last Admin: 08/08/16 22:11 Dose: 40 mg Potassium Chloride (K-Dur -) 20 meq PO DAILY [facility] Rosuvastatin Calcium (Crestor -) 20 mg PO HS [facility] Last Admin: 08/08/16 22:12 Dose: 20 mg - Objective Vital Signs: Vital Signs Temperature 99.5 F 08/08/16 22:08 Pulse Rate 83 08/08/16 22:08 Respiratory Rate 20 08/08/16 22:08 Blood Pressure 131/59 08/08/16 22:08 O2 Sat by Pulse Oximetry (%) 97 08/08/16 09:00 Constitutional: Yes: No Distress, Calm Eyes: Yes: Conjunctiva Clear, EOM Intact Neck: Yes: Supple, Trachea Midline Cardiovascular: Yes: Regular Rate and Rhythm Respiratory: Yes: Regular, CTA Bilaterally Gastrointestinal: Yes: Normal Bowel Sounds, Soft, Abdomen, Obese. No: Hepatomegaly, Splenomegaly Breast(s): Yes: WNL Labs: CBC, BMP 08/08/16 06:15 08/08/16 06:15 Problem List - Problems (1) Head trauma Assessment/Plan: mental status unchanged Code(s): S09.90XA - UNSPECIFIED INJURY OF HEAD, INITIAL ENCOUNTER (2) Fall Assessment/Plan: with head trauma the patient is unsafe because of numerous falls and will need closer monitoring Code(s): W19.XXXA - UNSPECIFIED FALL, INITIAL ENCOUNTER (3) Facial laceration Code(s): S01.81XA - LACERATION W/O FOREIGN BODY OF OTH PART OF HEAD, INIT ENCNTR (4) Dementia Assessment/Plan: dementia workup pending Code(s): F03.90 - UNSPECIFIED DEMENTIA WITHOUT BEHAVIORAL DISTURBANCE (5) Hypokalemia Assessment/Plan: k ciel 20 meq po daily labs in am Code(s): E87.6 - HYPOKALEMIA
[2016-08-09] MEDS: GABAPENTIN 100 MG CAPSULE (FP) PO SCH ×3 (06:05→23:06)
[2016-08-09] MEDS: DIVALPROEX SODIUM 125 MG TABLET E.C. (FP) PO SCH ×3 (06:05→17:08)
[2016-08-09] MEDS: LEVOTHYROXINE NA 50 MCG TABLET (FP) PO SCH (06:05)
[2016-08-09 07:23] LABS: BASOPHIL 0.4 % (0-2.0); MCH 29.5 pg (25.7-33.7); MEAN CELL VOLUME 86.8 fl (80-96); MEAN PLT VOLUME 7.1 fl (7.5-11.1); NEUTROPHILS 72.7 % (42.8-82.8); PLATELET COUNT 300 K/MM3 (134-434); RDW 13.3 % (11.6-15.6); WHITE BLOOD COUNT 7.2 K/mm3 (4.0-10.0)
[2016-08-09 07:53] LABS: ALBUMIN 2.3 g/dl (3.4-5.0); ANION GAP 11 (8-16); CALCIUM 8.3 mg/dL (8.5-10.1); CO2 25 mmol/L (21-32); CREATININE 0.7 mg/dL (0.55-1.02); GLUCOSE,RANDOM 88 mg/dL (74-106); SGOT/AST 26 U/L (15-37); SGPT/ALT 11 U/L (12-78)
[2016-08-09 07:55] LABS: ALK PHOS 74 U/L (45-117); BILIRUBIN,TOTAL 0.3 mg/dL (0.2-1.0); TOT PROT 5.2 g/dl (6.4-8.2)
[2016-08-09] MEDS ORDERED: POTASSIUM CHLORIDE TABS 20 MEQ TABLET.ER (FP) PO SCH (10:00)
[2016-08-09] MEDS ORDERED: PT OWN MED DRAWER 7, Y5N ONE ×3 (10:07→17:07)
[2016-08-09] MEDS: amLODIPine BESYLATE 2.5 MG TABLET (FP) PO SCH (10:32)
[2016-08-09] MEDS: BUDESONIDE/FORMETEROL FUMARATE 80/4.5 mcg INHALER IH SCH ×2 (10:32→23:07)
[2016-08-09] MEDS: MEMANTINE HCL 5 MG TABLET (UD) PO SCH ×2 (10:32→23:07)
[2016-08-09] MEDS: HEPARIN NA (PORCINE) 5,000 UNITS/ML 1ML VIAL SQ SCH ×2 (10:33→23:05)
[2016-08-09] MEDS: SODIUM CHLORIDE 1,000 ML with POTASSIUM CHLORIDE 10 MEQ IV SCH (12:09)
--- NOTE | 2016-08-09 13:37 | PN ---
Progress Note, Physician Chief Complaint: 76 yo female with dementia and frequent falls was brought to ER for admission with the goal of being admitted to a NH since is not able to take care of her anymore. The patient injured her face and sustained facial laceration after the fall. During her admission it became obvious that there are issues with the K metabolism, patient having persistently low K values despite the lack of diarrhea and acceptable oral intake. She is confused at baseline and in a due in a vest restraint due to her continuous agitation and the risk of falling and injuring herself - Current Medication List Current Medications: Active Medications Acetaminophen (Tylenol -) 650 mg PO Q6H PRN PRN Reason: FEVER OR PAIN Amlodipine Besylate (Norvasc -) 2.5 mg PO DAILY [facility] Last Admin: 08/09/16 10:32 Dose: 2.5 mg Budesonide/Formoterol Fumarate (Symbicort 80/4.5mcg -) 1 puff IH BID [facility] Last Admin: 08/09/16 10:32 Dose: 1 inh Divalproex Sodium (Depakote -) 125 mg PO Q6HPO [facility] Last Admin: 08/09/16 12:10 Dose: 125 mg Gabapentin (Neurontin -) 100 mg PO TID [facility] Last Admin: 08/09/16 06:05 Dose: 100 mg Heparin Sodium (Porcine) (Heparin -) 5,000 unit SQ BID [facility] Last Admin: 08/09/16 10:33 Dose: 5,000 unit Potassium Chloride 10 meq/ (Sodium Chloride) 1,005 mls @ 50 mls/hr IV Q20H [facility] Last Admin: 08/09/16 12:09 Dose: 50 mls/hr Levothyroxine Sodium (Synthroid -) 50 mcg PO DAILY@0700 [facility] Last Admin: 08/09/16 06:05 Dose: 50 mcg Memantine (Namenda -) 5 mg PO BID [facility] Last Admin: 08/09/16 10:32 Dose: 5 mg Mirtazapine (Remeron -) 7.5 mg PO [facility] Last Admin: 08/08/16 22:12 Dose: 7.5 mg Montelukast Sodium (Singulair -) 10 mg PO [facility] Last Admin: 08/08/16 22:11 Dose: 10 mg Paroxetine HCl (Paxil -) 40 mg PO [facility] Last Admin: 08/08/16 22:11 Dose: 40 mg Potassium Chloride (K-Dur -) 40 meq PO DAILY [facility] Rosuvastatin Calcium (Crestor -) 20 mg PO HS [facility] Last Admin: 08/08/16 22:12 Dose: 20 mg - Objective Vital Signs: Vital Signs Temperature 98.1 F 08/09/16 07:28 Pulse Rate 80 08/09/16 07:28 Respiratory Rate 20 08/09/16 07:28 Blood Pressure 132/68 08/09/16 07:28 O2 Sat by Pulse Oximetry (%) 96 08/09/16 09:00 Constitutional: Yes: No Distress Eyes: Yes: Conjunctiva Clear, EOM Intact HENT: Yes: Other (right rastafari delmi=tured laceration) Cardiovascular: Yes: Regular Rate and Rhythm, S1, S2 Respiratory: Yes: Regular, CTA Bilaterally Gastrointestinal: Yes: Normal Bowel Sounds, Soft, Abdomen, Obese Genitourinary: Yes: WNL Breast(s): Yes: WNL Edema: No Wound/Incision: Yes: Well Approximated, Open to air Neurological: Yes: Alert. No: Oriented Psychiatric: Yes: WNL, Alert. No: Oriented Labs: CBC, BMP 08/09/16 06:20 08/09/16 06:20 Problem List - Problems (1) Head trauma Assessment/Plan: mental status unchanged, laceration of the right rastafari clean and no discharge present Code(s): S09.90XA - UNSPECIFIED INJURY OF HEAD, INITIAL ENCOUNTER (2) Fall Assessment/Plan: with head trauma the patient is unsafe because of numerous falls and will need closer monitoring Code(s): W19.XXXA - UNSPECIFIED FALL, INITIAL ENCOUNTER (3) Dementia Assessment/Plan: dementia workup pending Code(s): F03.90 - UNSPECIFIED DEMENTIA WITHOUT BEHAVIORAL DISTURBANCE (4) Hypokalemia Assessment/Plan: the patient has received continuously K runs iv but her potassium continues to be low, there no diarrhea, urine electrolytes ordered and cortsol level in am ordered, nephrology consult Code(s): E87.6 - HYPOKALEMIA
[2016-08-09] MEDS: POTASSIUM CHLORIDE TABS 20 MEQ TABLET.ER (FP) PO SCH ×2 (13:54→23:04)
[2016-08-09 14:12] LABS: VITAMIN E (ALPHA) 9.6 mg/L (6.5-21.5)
--- NOTE | 2016-08-09 18:21 | CONSULT ---
Consult Consult Specialty:: Nephrology Reason for Consultation:: Hypokalemia - History of Present Illness Chief Complaint: presented to the ER s/p fall History of Present Illness: Pt is a 76 year old female with pmhx of depression, CVA, COPD, GERD, HTN, hypothryroidism and hyperlipidemia who presented to the ER after a fall. She was found to be hypokalemic and despite supplements it did not improve. Pt is a poor historian. She denies shortness of breath. She complains of poor appetite. She denies chest pain or palpitations. 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 Cardio/Vascular: Yes: HTN, Hyperlipdemia Pulmonary: Yes: COPD Gastrointestinal: Yes: GERD ...: No Endocrine: Yes: Hypothyroidism - Alcohol/Substance Use Hx Alcohol Use: No History of Substance Use: reports: None - Smoking History Smoking history: Former smoker Have you smoked in the past 12 months: No Aproximately how many cigarettes per day: 0 If you are a former smoker, when did you quit?: 1YR - Social History ADL: Independent History of Recent Travel: No Home Medications - Allergies Allergies/Adverse Reactions: Allergies Allergy/AdvReac Type Severity Reaction Status Date / Time prochlorperazine edisylate Allergy Intermediate Verified 08/06/16 00:15 [From Compazine] - Home Medications Home Medications: Ambulatory Orders Budesonide/Formeterol Fumarate [SYMBICORT 80/4.5mcg -] 1 inh PO BID 12/08/15 Gabapentin [Neurontin -] 100 mg PO Q8H 12/08/15 Levothyroxine [Synthroid -] 50 mcg PO DAILY 12/08/15 Montelukast Na [Singulair -] 10 mg PO HS 12/08/15 Paroxetine HCl 40 mg PO HS 12/08/15 Rosuvastatin Calcium [Crestor] 20 mg PO HS 12/08/15 Amlodipine Besylate [Norvasc -] 2.5 mg PO DAILY 02/16/16 Divalproex Sodium 125 mg PO QID 02/16/16 Mirtazapine [Remeron -] 7.5 mg PO HS 08/06/16 Family Disease History - Family Disease History Family History: Denies Review of Systems Unable to obtain ROS, reason: poor historian - Review of Systems Constitutional: reports: No Symptoms Eyes: reports: No Symptoms HENT: reports: No Symptoms Neck: reports: No Symptoms Cardiovascular: reports: No Symptoms Respiratory: reports: No Symptoms Gastrointestinal: reports: No Symptoms Genitourinary: reports: No Symptoms Musculoskeletal: reports: No Symptoms Integumentary: reports: No Symptoms Physical Exam Vital Signs: Vital Signs Temperature 98.6 F 08/09/16 14:58 Pulse Rate 93 H 08/09/16 14:58 Respiratory Rate 20 08/09/16 14:58 Blood Pressure 144/81 08/09/16 14:58 O2 Sat by Pulse Oximetry (%) 96 08/09/16 09:00 Constitutional: Yes: Calm Eyes: Yes: Conjunctiva Clear HENT: Yes: Atraumatic Neck: Yes: Supple Cardiovascular: Yes: S1, S2 Respiratory: Yes: CTA Bilaterally Gastrointestinal: Yes: Soft Renal/: Yes: Incontinence Musculoskeletal: Yes: Muscle Weakness Edema: No Neurological: Yes: Confusion Labs: CBC, BMP 08/09/16 06:20 08/09/16 06:20 Laboratory Tests 08/06/16 08/06/16 08/06/16 01:24 14:20 19:30 WBC Hgb Plt Count Sodium Potassium 2.4 L* D 2.3 L* 2.7 L* Creatinine Magnesium Creatine Kinase Total Protein Albumin 08/07/16 08/07/16 08/08/16 07:45 07:45 06:15 WBC Hgb 11.8 Plt Count 342 329 Sodium 144 Potassium 2.7 L* Creatinine 0.9 Magnesium Creatine Kinase Total Protein Albumin 08/08/16 08/08/16 08/09/16 06:15 06:15 06:20 WBC 7.2 Hgb 11.0 Plt Count 300 Sodium Potassium 3.2 L Creatinine 0.8 Magnesium 2.1 Creatine Kinase 378 H D Total Protein Albumin 08/09/16 06:20 WBC Hgb Plt Count Sodium 146 H Potassium 3.0 L Creatinine 0.7 Magnesium Creatine Kinase Total Protein 5.2 L Albumin 2.3 L Imaging - Results Cat Scan: Report Reviewed Problem List - Problems (1) Dementia Code(s): F03.90 - UNSPECIFIED DEMENTIA WITHOUT BEHAVIORAL DISTURBANCE (2) FTT (failure to thrive) in adult Code(s): R62.7 - ADULT FAILURE TO THRIVE (3) Hypokalemia Code(s): E87.6 - HYPOKALEMIA (4) Hypothyroidism Code(s): E03.9 - HYPOTHYROIDISM, UNSPECIFIED Assessment/Plan Current Medications Generic Name Dose Route Start Last Admin Trade Name Freq PRN Reason Stop Dose Admin Acetaminophen 650 mg 08/07/16 16:56 Tylenol - PO Q6H PRN FEVER OR PAIN Amlodipine Besylate 2.5 mg 08/06/16 10:00 08/09/16 10:32 Norvasc - PO 2.5 mg DAILY [facility] Administration Budesonide/Formoterol Fumarate 1 puff 08/06/16 10:00 08/09/16 10:32 Symbicort 80/4.5mcg - IH 1 inh BID [facility] Administration Divalproex Sodium 125 mg 08/06/16 07:30 08/09/16 17:08 Depakote - PO 125 mg Q6HPO [facility] Administration Gabapentin 100 mg 08/06/16 07:30 08/09/16 13:54 Neurontin - PO 100 mg TID [facility] Administration Heparin Sodium (Porcine) 5,000 unit 08/07/16 22:00 08/09/16 10:33 Heparin - SQ 5,000 unit BID [facility] Administration Potassium Chloride 10 meq/ 1,005 mls @ 50 mls/hr 08/06/16 21:00 08/09/16 12:09 Sodium Chloride IV 50 mls/hr Q20H [facility] Administration Levothyroxine Sodium 50 mcg 08/06/16 07:15 08/09/16 06:05 Synthroid - PO 50 mcg DAILY@0700 [facility] Administration Memantine 5 mg 08/06/16 22:00 08/09/16 10:32 Namenda - PO 5 mg BID [facility] Administration Mirtazapine 7.5 mg 08/06/16 22:00 08/08/16 22:12 Remeron - PO 7.5 mg HS [facility] Administration Montelukast Sodium 10 mg 08/06/16 22:00 08/08/16 22:11 Singulair - PO 10 mg HS [facility] Administration Paroxetine HCl 40 mg 08/06/16 22:00 08/08/16 22:11 Paxil - PO 40 mg HS [facility] Administration Potassium Chloride 40 meq 08/09/16 13:45 08/09/16 13:54 K-Dur - PO 40 meq BID [facility] Administration Rosuvastatin Calcium 20 mg 08/06/16 22:00 08/08/16 22:12 Crestor - PO 20 mg HS [facility] Administration Impression 1. hypokalemia 2. dementia 3. hypothyroidism 4. htn 5. hyperlipidemia Plan - will send osms and urine k to calculate ttkg - replace potassium - will add KCl to IV fluids - repeat labs in am - check mag level - potassium has improved slowly over the course of the last few days Dr Yancey
[2016-08-09] MEDS ORDERED: SODIUM CHLORIDE 0.45% 1,000 ML with POTASSIUM CHLORIDE 40 MEQ IVPB SCH (18:30)
[2016-08-09] MEDS ORDERED: ROSUVASTATIN CA 10 MG TABLET (FP) ONE (23:02)
[2016-08-09] MEDS: MIRTAZAPINE 15 MG TABLET (FP) PO SCH (23:05)
[2016-08-09] MEDS: PARoxetine HCL 20 MG TABLET (FP) PO SCH (23:06)
[2016-08-09] MEDS: MONTELUKAST NA 10 MG TABLET PO SCH (23:06)
[2016-08-09] MEDS: ROSUVASTATIN CA 20 MG TABLET (FP) PO SCH (23:07)
[2016-08-10] MEDS: DIVALPROEX SODIUM 125 MG TABLET E.C. (FP) PO SCH ×4 (00:06→17:59)
[2016-08-10] MEDS: GABAPENTIN 100 MG CAPSULE (FP) PO SCH ×3 (06:39→22:20)
[2016-08-10] MEDS: LEVOTHYROXINE NA 50 MCG TABLET (FP) PO SCH (06:39)
[2016-08-10 08:27] LABS: BASOPHIL 0.4 % (0-2.0); EOSINOPHIL 2.9 % (0-4.5); MCH 29.3 pg (25.7-33.7); MCHC 33.3 g/dl (32.0-36.0); MEAN PLT VOLUME 7.6 fl (7.5-11.1); NEUTROPHILS 68.5 % (42.8-82.8); PLATELET COUNT 313 K/MM3 (134-434); RDW 13.4 % (11.6-15.6); WHITE BLOOD COUNT 7.6 K/mm3 (4.0-10.0)
[2016-08-10 08:31] LABS: MAGNESIUM 2.1 mg/dL (1.8-2.4)
[2016-08-10 08:35] LABS: ALBUMIN 2.1 g/dl (3.4-5.0); ANION GAP 10 (8-16); CALCIUM 8.3 mg/dL (8.5-10.1); CO2 24 mmol/L (21-32); CREATININE 0.7 mg/dL (0.55-1.02); GLUCOSE,RANDOM 75 mg/dL (74-106); SGOT/AST 21 U/L (15-37); SGPT/ALT 14 U/L (12-78)
[2016-08-10 08:37] LABS: ALK PHOS 74 U/L (45-117); BILIRUBIN,TOTAL 0.3 mg/dL (0.2-1.0); TOT PROT 5.2 g/dl (6.4-8.2)
[2016-08-10] MEDS ORDERED: PT OWN MED DRAWER 7, Y5N ONE (09:23)
[2016-08-10] MEDS: HEPARIN NA (PORCINE) 5,000 UNITS/ML 1ML VIAL SQ SCH ×2 (09:30→22:19)
[2016-08-10] MEDS: POTASSIUM CHLORIDE TABS 20 MEQ TABLET.ER (FP) PO SCH ×2 (09:36→22:19)
[2016-08-10] MEDS: MEMANTINE HCL 5 MG TABLET (UD) PO SCH ×2 (09:37→22:19)
[2016-08-10] MEDS: BUDESONIDE/FORMETEROL FUMARATE 80/4.5 mcg INHALER IH SCH ×2 (09:38→22:20)
[2016-08-10] MEDS: amLODIPine BESYLATE 2.5 MG TABLET (FP) PO SCH (09:38)
[2016-08-10] MEDS ORDERED: POTASSIUM CHLORIDE TABS 20 MEQ TABLET.ER (FP) PO SCH (10:00)
--- NOTE | 2016-08-10 14:10 | PN ---
Progress Note, Physician History of Present Illness: Pt seen and examined at bedside. She still has poor PO intake. - Current Medication List Current Medications: Active Medications Acetaminophen (Tylenol -) 650 mg PO Q6H PRN PRN Reason: FEVER OR PAIN Amlodipine Besylate (Norvasc -) 2.5 mg PO DAILY [facility] Last Admin: 08/10/16 09:38 Dose: 2.5 mg Budesonide/Formoterol Fumarate (Symbicort 80/4.5mcg -) 1 puff IH BID [facility] Last Admin: 08/10/16 09:38 Dose: 1 inh Divalproex Sodium (Depakote -) 125 mg PO Q6HPO [facility] Last Admin: 08/10/16 12:03 Dose: 125 mg Gabapentin (Neurontin -) 100 mg PO TID [facility] Last Admin: 08/10/16 06:39 Dose: 100 mg Heparin Sodium (Porcine) (Heparin -) 5,000 unit SQ BID [facility] Last Admin: 08/10/16 09:30 Dose: 5,000 unit Potassium Chloride 40 meq/ (Sodium Chloride) 1,020 mls @ 50 mls/hr IVPB ASDIR [facility] Stop: 08/10/16 18:28 Last Admin: 08/09/16 23:50 Dose: 50 mls/hr Levothyroxine Sodium (Synthroid -) 50 mcg PO DAILY@0700 [facility] Last Admin: 08/10/16 06:39 Dose: 50 mcg Memantine (Namenda -) 5 mg PO BID [facility] Last Admin: 08/10/16 09:37 Dose: 5 mg Mirtazapine (Remeron -) 7.5 mg PO HS [facility] Last Admin: 08/09/16 23:05 Dose: 7.5 mg Montelukast Sodium (Singulair -) 10 mg PO HS [facility] Last Admin: 08/09/16 23:06 Dose: 10 mg Paroxetine HCl (Paxil -) 40 mg PO HS [facility] Last Admin: 08/09/16 23:06 Dose: 40 mg Potassium Chloride (K-Dur -) 40 meq PO BID [facility] Last Admin: 08/10/16 09:36 Dose: 40 meq Rosuvastatin Calcium (Crestor -) 20 mg PO HS [facility] Last Admin: 08/09/16 23:07 Dose: 20 mg - Objective Vital Signs: Vital Signs Temperature 98.8 F 08/10/16 09:19 Pulse Rate 79 08/10/16 09:19 Respiratory Rate 18 08/10/16 09:19 Blood Pressure 156/76 08/10/16 09:19 O2 Sat by Pulse Oximetry (%) 96 08/09/16 22:00 Constitutional: Yes: Calm Eyes: Yes: Conjunctiva Clear HENT: Yes: Atraumatic Neck: Yes: Supple Cardiovascular: Yes: S1, S2 Respiratory: Yes: CTA Bilaterally Gastrointestinal: Yes: Soft Genitourinary: Yes: WNL, Incontinence Musculoskeletal: Yes: WNL Edema: No Integumentary: Yes: WNL Neurological: Yes: Confusion Labs: CBC, BMP 08/10/16 06:50 08/10/16 06:50 Problem List - Problems (1) Dementia Code(s): F03.90 - UNSPECIFIED DEMENTIA WITHOUT BEHAVIORAL DISTURBANCE (2) FTT (failure to thrive) in adult Code(s): R62.7 - ADULT FAILURE TO THRIVE (3) Hypokalemia Code(s): E87.6 - HYPOKALEMIA (4) Hypothyroidism Code(s): E03.9 - HYPOTHYROIDISM, UNSPECIFIED Assessment/Plan Current Medications Generic Name Dose Route Start Last Admin Trade Name Freq PRN Reason Stop Dose Admin Acetaminophen 650 mg 08/07/16 16:56 Tylenol - PO Q6H PRN FEVER OR PAIN Amlodipine Besylate 2.5 mg 08/06/16 10:00 08/10/16 09:38 Norvasc - PO 2.5 mg DAILY [facility] Administration Budesonide/Formoterol Fumarate 1 puff 08/06/16 10:00 08/10/16 09:38 Symbicort 80/4.5mcg - IH 1 inh BID [facility] Administration Divalproex Sodium 125 mg 08/06/16 07:30 08/10/16 12:03 Depakote - PO 125 mg Q6HPO [facility] Administration Gabapentin 100 mg 08/06/16 07:30 08/10/16 06:39 Neurontin - PO 100 mg TID JO[facility] ROBERTO Administration Heparin Sodium (Porcine) 5,000 unit 08/07/16 22:00 08/10/16 09:30 Heparin - SQ 5,000 unit BID [facility] Administration Potassium Chloride 40 meq/ 1,020 mls @ 50 mls/hr 08/09/16 18:30 08/09/16 23:50 Sodium Chloride IVPB 08/10/16 18:28 50 mls/hr ASDIR [facility]ERTO Administration Levothyroxine Sodium 50 mcg 08/06/16 07:15 08/10/16 06:39 Synthroid - PO 50 mcg DAILY@0700 [facility] Administration Memantine 5 mg 08/06/16 22:00 08/10/16 09:37 Namenda - PO 5 mg BID [facility] Administration Mirtazapine 7.5 mg 08/06/16 22:00 08/09/16 23:05 Remeron - PO 7.5 mg HS [facility] Administration Montelukast Sodium 10 mg 08/06/16 22:00 08/09/16 23:06 Singulair - PO 10 mg HS [facility] Administration Paroxetine HCl 40 mg 08/06/16 22:00 08/09/16 23:06 Paxil - PO 40 mg HS [facility] Administration Potassium Chloride 40 meq 08/09/16 13:45 08/10/16 09:36 K-Dur - PO 40 meq BID [facility] Administration Rosuvastatin Calcium 20 mg 08/06/16 22:00 08/09/16 23:07 Crestor - PO 20 mg HS [facility] Administration Laboratory Tests 08/10/16 08/10/16 08/10/16 06:45 06:50 06:50 Potassium 4.0 D Serum Osmolality Pending Magnesium Urine Osmolality Ur Random Potassium 25.9 08/10/16 06:50 Potassium Serum Osmolality Magnesium 2.1 Urine Osmolality Pending Ur Random Potassium Impression 1. hypokalemia 2. dementia 3. hypothyroidism 4. htn 5. hyperlipidemia Plan - potassium is improved - cont with supplements and monitor levels - osm are pending, to calculate TTKG - pt is only eating 25 percent of her food, encourage PO intake - repeat labs in am - will follow Dr Yancey
--- NOTE | 2016-08-10 20:11 | PN ---
Progress Note, Physician History of Present Illness: Pt. w/o complains; pt. w/o fever, cough, SOB, CP, abd pain. Pt. states that is stonger now. Pt. was seen in AM; case was d/w pt.'s nurse at bedside- pt with low PO intake. - Current Medication List Current Medications: Active Medications Acetaminophen (Tylenol -) 650 mg PO Q6H PRN PRN Reason: FEVER OR PAIN Amlodipine Besylate (Norvasc -) 2.5 mg PO DAILY [facility] Last Admin: 08/10/16 09:38 Dose: 2.5 mg Budesonide/Formoterol Fumarate (Symbicort 80/4.5mcg -) 1 puff IH BID [facility] Last Admin: 08/10/16 09:38 Dose: 1 inh Divalproex Sodium (Depakote -) 125 mg PO Q6HPO [facility] Last Admin: 08/10/16 17:59 Dose: 125 mg Gabapentin (Neurontin -) 100 mg PO TID [facility] Last Admin: 08/10/16 15:05 Dose: 100 mg Heparin Sodium (Porcine) (Heparin -) 5,000 unit SQ BID [facility] Last Admin: 08/10/16 09:30 Dose: 5,000 unit Levothyroxine Sodium (Synthroid -) 50 mcg PO DAILY@0700 [facility] Last Admin: 08/10/16 06:39 Dose: 50 mcg Memantine (Namenda -) 5 mg PO BID [facility] Last Admin: 08/10/16 09:37 Dose: 5 mg Mirtazapine (Remeron -) 7.5 mg PO [facility] Last Admin: 08/09/16 23:05 Dose: 7.5 mg Montelukast Sodium (Singulair -) 10 mg PO HS [facility] Last Admin: 08/09/16 23:06 Dose: 10 mg Paroxetine HCl (Paxil -) 40 mg PO HS [facility] Last Admin: 08/09/16 23:06 Dose: 40 mg Potassium Chloride (K-Dur -) 40 meq PO BID [facility] Last Admin: 08/10/16 09:36 Dose: 40 meq Rosuvastatin Calcium (Crestor -) 20 mg PO HS [facility] Last Admin: 08/09/16 23:07 Dose: 20 mg - Objective Vital Signs: Vital Signs Temperature 98.1 F 08/10/16 18:00 Pulse Rate 75 08/10/16 18:00 Respiratory Rate 18 08/10/16 18:00 Blood Pressure 139/79 08/10/16 18:00 O2 Sat by Pulse Oximetry (%) 94 L 08/10/16 09:00 Constitutional: Yes: No Distress, Calm Cardiovascular: Yes: Regular Rate and Rhythm, S1, S2 Respiratory: Yes: Regular, CTA Bilaterally. No: Rales Gastrointestinal: Yes: Normal Bowel Sounds, Soft. No: Tenderness Edema: No Neurological: Yes: Alert, Oriented (person) Labs: CBC, BMP 08/10/16 06:50 08/10/16 06:50 Problem List - Problems (1) Fall Assessment/Plan: Neuro consult appreciated Code(s): W19.XXXA - UNSPECIFIED FALL, INITIAL ENCOUNTER (2) Head trauma Code(s): S09.90XA - UNSPECIFIED INJURY OF HEAD, INITIAL ENCOUNTER (3) Hypokalemia Assessment/Plan: Severe Hypokalemia Replete and f/u K. Renal consult and f/u appreciated. Code(s): E87.6 - HYPOKALEMIA (4) Impaired gait Assessment/Plan: PT evel. Might need Rehab Code(s): R26.9 - UNSPECIFIED ABNORMALITIES OF GAIT AND MOBILITY (5) Dementia Code(s): F03.90 - UNSPECIFIED DEMENTIA WITHOUT BEHAVIORAL DISTURBANCE (6) Hypertension Assessment/Plan: Cont meds. Code(s): I10 - ESSENTIAL (PRIMARY) HYPERTENSION Qualifiers: Hypertension type: other secondary hypertension Qualified Code(s): I15.8 - Other secondary hypertension (7) Hypothyroidism Code(s): E03.9 - HYPOTHYROIDISM, UNSPECIFIED Assessment/Plan AM labs.
[2016-08-10] MEDS ORDERED: SODIUM CHLORIDE 0.45% 1,000 ML with POTASSIUM CHLORIDE 40 MEQ IV SCH (21:30)
[2016-08-10] MEDS ORDERED: ROSUVASTATIN CA 10 MG TABLET (FP) ONE (22:12)
[2016-08-10] MEDS: MONTELUKAST NA 10 MG TABLET PO SCH (22:16)
[2016-08-10] MEDS: ROSUVASTATIN CA 20 MG TABLET (FP) PO SCH (22:18)
[2016-08-10] MEDS: MIRTAZAPINE 15 MG TABLET (FP) PO SCH (22:19)
[2016-08-10] MEDS: PARoxetine HCL 20 MG TABLET (FP) PO SCH (22:20)
[2016-08-11] MEDS: DIVALPROEX SODIUM 125 MG TABLET E.C. (FP) PO SCH ×4 (00:50→17:46)
[2016-08-11] MEDS: GABAPENTIN 100 MG CAPSULE (FP) PO SCH ×3 (05:46→21:34)
[2016-08-11] MEDS: LEVOTHYROXINE NA 50 MCG TABLET (FP) PO SCH (06:02)
[2016-08-11 09:40] LABS: CALCIUM 8.6 mg/dL (8.5-10.1); CREATININE 0.7 mg/dL (0.55-1.02); MAGNESIUM 2.1 mg/dL (1.8-2.4)
[2016-08-11] MEDS: HEPARIN NA (PORCINE) 5,000 UNITS/ML 1ML VIAL SQ SCH ×2 (09:47→21:35)
[2016-08-11] MEDS: POTASSIUM CHLORIDE TABS 20 MEQ TABLET.ER (FP) PO SCH (09:47)
[2016-08-11] MEDS: MEMANTINE HCL 5 MG TABLET (UD) PO SCH ×2 (09:49→21:34)
[2016-08-11] MEDS: amLODIPine BESYLATE 2.5 MG TABLET (FP) PO SCH (09:49)
[2016-08-11] MEDS: BUDESONIDE/FORMETEROL FUMARATE 80/4.5 mcg INHALER IH SCH ×2 (09:50→21:37)
[2016-08-11] MEDS ORDERED: SODIUM CHLORIDE 0.45% 1,000 ML IV SCH (11:15)
--- NOTE | 2016-08-11 12:32 | PN ---
Progress Note, Physician History of Present Illness: Pt. w/o complains; pt. w/o fever, cough, SOB, CP, abd pain. Pt. states that is felling better. Case was d/w pt.'s nurse at bedside- pt with low PO intake. - Current Medication List Current Medications: Active Medications Acetaminophen (Tylenol -) 650 mg PO Q6H PRN PRN Reason: FEVER OR PAIN Amlodipine Besylate (Norvasc -) 2.5 mg PO DAILY [facility] Last Admin: 08/11/16 09:49 Dose: 2.5 mg Budesonide/Formoterol Fumarate (Symbicort 80/4.5mcg -) 1 puff IH BID [facility] Last Admin: 08/11/16 09:50 Dose: 1 inh Divalproex Sodium (Depakote -) 125 mg PO Q6HPO [facility] Last Admin: 08/11/16 11:52 Dose: 125 mg Gabapentin (Neurontin -) 100 mg PO TID [facility] Last Admin: 08/11/16 05:46 Dose: 100 mg Heparin Sodium (Porcine) (Heparin -) 5,000 unit SQ BID [facility] Last Admin: 08/11/16 09:47 Dose: 5,000 unit Sodium Chloride (1/2 Normal Saline) 1,000 mls @ 50 mls/hr IV ASDIR [facility] Stop: 08/12/16 11:12 Levothyroxine Sodium (Synthroid -) 50 mcg PO DAILY@0700 [facility] Last Admin: 08/11/16 06:02 Dose: 50 mcg Memantine (Namenda -) 5 mg PO BID [facility] Last Admin: 08/11/16 09:49 Dose: 5 mg Mirtazapine (Remeron -) 7.5 mg PO [facility] Last Admin: 08/10/16 22:19 Dose: 7.5 mg Montelukast Sodium (Singulair -) 10 mg PO HS [facility] Last Admin: 08/10/16 22:16 Dose: 10 mg Paroxetine HCl (Paxil -) 40 mg PO HS [facility] Last Admin: 08/10/16 22:20 Dose: 40 mg Rosuvastatin Calcium (Crestor -) 20 mg PO HS [facility] Last Admin: 08/10/16 22:18 Dose: 20 mg - Objective Vital Signs: Vital Signs Temperature 98.9 F 08/11/16 08:32 Pulse Rate 78 08/11/16 08:32 Respiratory Rate 20 08/11/16 08:32 Blood Pressure 144/76 08/11/16 08:32 O2 Sat by Pulse Oximetry (%) 96 08/10/16 21:00 Constitutional: Yes: No Distress, Calm Cardiovascular: Yes: Regular Rate and Rhythm, S1, S2 Respiratory: Yes: Regular, CTA Bilaterally Gastrointestinal: Yes: Normal Bowel Sounds, Soft. No: Palpable Mass, Tenderness Edema: No Neurological: Yes: Alert Labs: CBC, BMP 08/10/16 06:50 08/11/16 08:20 Problem List - Problems (1) Fall Assessment/Plan: Neuro consult and f/u appreciated Code(s): W19.XXXA - UNSPECIFIED FALL, INITIAL ENCOUNTER (2) Head trauma Code(s): S09.90XA - UNSPECIFIED INJURY OF HEAD, INITIAL ENCOUNTER (3) Hypokalemia Assessment/Plan: Severe Hypokalemia- resolved with supplementation Renal consult and f/u appreciated- case was d/w Dr. Yancey, IVF were changed. Code(s): E87.6 - HYPOKALEMIA (4) Impaired gait Assessment/Plan: PT eval. Might need Rehab Code(s): R26.9 - UNSPECIFIED ABNORMALITIES OF GAIT AND MOBILITY (5) Dementia Code(s): F03.90 - UNSPECIFIED DEMENTIA WITHOUT BEHAVIORAL DISTURBANCE (6) Hypertension Assessment/Plan: Cont meds. Code(s): I10 - ESSENTIAL (PRIMARY) HYPERTENSION Qualifiers: Hypertension type: other secondary hypertension Qualified Code(s): I15.8 - Other secondary hypertension (7) Hypothyroidism Assessment/Plan: Normal TSH Code(s): E03.9 - HYPOTHYROIDISM, UNSPECIFIED Assessment/Plan AM labs. DVT proph.
--- NOTE | 2016-08-11 13:11 | PN ---
Progress Note, Physician - Current Medication List Current Medications: Active Medications Acetaminophen (Tylenol -) 650 mg PO Q6H PRN PRN Reason: FEVER OR PAIN Amlodipine Besylate (Norvasc -) 2.5 mg PO DAILY [facility] Last Admin: 08/11/16 09:49 Dose: 2.5 mg Budesonide/Formoterol Fumarate (Symbicort 80/4.5mcg -) 1 puff IH BID [facility] Last Admin: 08/11/16 09:50 Dose: 1 inh Divalproex Sodium (Depakote -) 125 mg PO Q6HPO [facility] Last Admin: 08/11/16 11:52 Dose: 125 mg Gabapentin (Neurontin -) 100 mg PO TID [facility] Last Admin: 08/11/16 05:46 Dose: 100 mg Heparin Sodium (Porcine) (Heparin -) 5,000 unit SQ BID [facility] Last Admin: 08/11/16 09:47 Dose: 5,000 unit Sodium Chloride (1/2 Normal Saline) 1,000 mls @ 50 mls/hr IV ASDIR [facility] Stop: 08/12/16 11:12 Last Admin: 08/11/16 12:41 Dose: 50 mls/hr Levothyroxine Sodium (Synthroid -) 50 mcg PO DAILY@0700 [facility] Last Admin: 08/11/16 06:02 Dose: 50 mcg Memantine (Namenda -) 5 mg PO BID [facility] Last Admin: 08/11/16 09:49 Dose: 5 mg Mirtazapine (Remeron -) 7.5 mg PO [facility] Last Admin: 08/10/16 22:19 Dose: 7.5 mg Montelukast Sodium (Singulair -) 10 mg PO [facility] Last Admin: 08/10/16 22:16 Dose: 10 mg Paroxetine HCl (Paxil -) 40 mg PO [facility] Last Admin: 08/10/16 22:20 Dose: 40 mg Rosuvastatin Calcium (Crestor -) 20 mg PO [facility] Last Admin: 08/10/16 22:18 Dose: 20 mg - Objective Vital Signs: Vital Signs Temperature 98.9 F 08/11/16 08:32 Pulse Rate 78 08/11/16 08:32 Respiratory Rate 20 08/11/16 08:32 Blood Pressure 144/76 08/11/16 08:32 O2 Sat by Pulse Oximetry (%) 96 08/10/16 21:00 Labs: CBC, BMP 08/10/16 06:50 08/11/16 08:20 Problem List - Problems (1) Dementia Code(s): F03.90 - UNSPECIFIED DEMENTIA WITHOUT BEHAVIORAL DISTURBANCE (2) FTT (failure to thrive) in adult Code(s): R62.7 - ADULT FAILURE TO THRIVE (3) Hypokalemia Code(s): E87.6 - HYPOKALEMIA (4) Hypothyroidism Code(s): E03.9 - HYPOTHYROIDISM, UNSPECIFIED Assessment/Plan Current Medications Generic Name Dose Route Start Last Admin Trade Name Freq PRN Reason Stop Dose Admin Acetaminophen 650 mg 08/07/16 16:56 Tylenol - PO Q6H PRN FEVER OR PAIN Amlodipine Besylate 2.5 mg 08/06/16 10:00 08/11/16 09:49 Norvasc - PO 2.5 mg DAILY [facility]O Administration Budesonide/Formoterol Fumarate 1 puff 08/06/16 10:00 08/11/16 09:50 Symbicort 80/4.5mcg - IH 1 inh BID [facility] ROBERTO Administration Divalproex Sodium 125 mg 08/06/16 07:30 08/11/16 11:52 Depakote - PO 125 mg Q6HPO [facility] ROBERTO Administration Gabapentin 100 mg 08/06/16 07:30 08/11/16 05:46 Neurontin - PO 100 mg TID JO[facility] ROBERTO Administration Heparin Sodium (Porcine) 5,000 unit 08/07/16 22:00 08/11/16 09:47 Heparin - SQ 5,000 unit BID [facility] ROBERTO Administration Sodium Chloride 1,000 mls @ 50 mls/hr 08/11/16 11:15 08/11/16 12:41 1/2 Normal Saline IV 08/12/16 11:12 50 mls/hr ASDIR [facility] ROBERTO Administration Levothyroxine Sodium 50 mcg 08/06/16 07:15 08/11/16 06:02 Synthroid - PO 50 mcg DAILY@0700 JO[facility] ROBERTO Administration Memantine 5 mg 08/06/16 22:00 08/11/16 09:49 Namenda - PO 5 mg BID [facility] ROBERTO Administration Mirtazapine 7.5 mg 08/06/16 22:00 08/10/16 22:19 Remeron - PO 7.5 mg HS JO[facility] ROBERTO Administration Montelukast Sodium 10 mg 08/06/16 22:00 08/10/16 22:16 Singulair - PO 10 mg HS [facility] ROBERTO Administration Paroxetine HCl 40 mg 08/06/16 22:00 08/10/16 22:20 Paxil - PO 40 mg HS [facility] ROBERTO Administration Rosuvastatin Calcium 20 mg 08/06/16 22:00 08/10/16 22:18 Crestor - PO 20 mg HS [facility] ROBERTO Administration Impression 1. hypokalemia 2. dementia 3. hypothyroidism 4. htn 5. hyperlipidemia Plan - TTKG is about 3.45 however values were taken after potassium normalized - etiology of hypokalemia is likely decreased total body potassium secondary to decreased PO intake - will cont with fluids - potassium is improved - discussed with attending - repeat labs in am - encourage PO intake - will follow Dr Yancey
[2016-08-11] MEDS: ROSUVASTATIN CA 20 MG TABLET (FP) PO SCH (21:34)
[2016-08-11] MEDS: MONTELUKAST NA 10 MG TABLET PO SCH (21:34)
[2016-08-11] MEDS: PARoxetine HCL 20 MG TABLET (FP) PO SCH (21:34)
[2016-08-11] MEDS: MIRTAZAPINE 15 MG TABLET (FP) PO SCH (21:34)
[2016-08-12] MEDS: DIVALPROEX SODIUM 125 MG TABLET E.C. (FP) PO SCH ×5 (00:11→22:24)
[2016-08-12] MEDS: GABAPENTIN 100 MG CAPSULE (FP) PO SCH ×3 (06:25→22:21)
[2016-08-12] MEDS: LEVOTHYROXINE NA 50 MCG TABLET (FP) PO SCH (06:25)
[2016-08-12 08:09] LABS: CALCIUM 8.9 mg/dL (8.5-10.1)
[2016-08-12 08:11] LABS: CREATININE 0.8 mg/dL (0.55-1.02)
[2016-08-12] MEDS ORDERED: PT OWN MED DRAWER 7, Y5N ONE ×4 (10:02→22:32)
[2016-08-12] MEDS: amLODIPine BESYLATE 2.5 MG TABLET (FP) PO SCH (10:05)
[2016-08-12] MEDS: MEMANTINE HCL 5 MG TABLET (UD) PO SCH ×2 (10:05→22:21)
[2016-08-12] MEDS: HEPARIN NA (PORCINE) 5,000 UNITS/ML 1ML VIAL SQ SCH ×2 (10:05→22:21)
[2016-08-12] MEDS: POTASSIUM CHLORIDE TABS 20 MEQ TABLET.ER (FP) PO SCH ×2 (10:05→10:14)
[2016-08-12] MEDS: BUDESONIDE/FORMETEROL FUMARATE 80/4.5 mcg INHALER IH SCH ×2 (10:05→22:25)
--- NOTE | 2016-08-12 10:34 | PN ---
Progress Note, Physician History of Present Illness: Pt. w/o complains; pt. w/o fever, cough, SOB, CP, abd pain. Pt. states that is felling better. Case was d/w pt.'s nurse at bedside. - Current Medication List Current Medications: Active Medications Acetaminophen (Tylenol -) 650 mg PO Q6H PRN PRN Reason: FEVER OR PAIN Amlodipine Besylate (Norvasc -) 2.5 mg PO DAILY [facility] Last Admin: 08/12/16 10:05 Dose: 2.5 mg Budesonide/Formoterol Fumarate (Symbicort 80/4.5mcg -) 1 puff IH BID [facility] Last Admin: 08/12/16 10:05 Dose: 1 inh Divalproex Sodium (Depakote -) 125 mg PO Q6HPO [facility] Last Admin: 08/12/16 06:25 Dose: 125 mg Gabapentin (Neurontin -) 100 mg PO TID [facility] Last Admin: 08/12/16 06:25 Dose: 100 mg Heparin Sodium (Porcine) (Heparin -) 5,000 unit SQ BID [facility] Last Admin: 08/12/16 10:05 Dose: 5,000 unit Sodium Chloride (1/2 Normal Saline) 1,000 mls @ 50 mls/hr IV ASDIR [facility] Stop: 08/12/16 11:12 Last Admin: 08/11/16 12:41 Dose: 50 mls/hr Levothyroxine Sodium (Synthroid -) 50 mcg PO DAILY@0700 [facility] Last Admin: 08/12/16 06:25 Dose: 50 mcg Memantine (Namenda -) 5 mg PO BID [facility] Last Admin: 08/12/16 10:05 Dose: 5 mg Mirtazapine (Remeron -) 7.5 mg PO HS [facility] Last Admin: 08/11/16 21:34 Dose: 7.5 mg Montelukast Sodium (Singulair -) 10 mg PO HS [facility] Last Admin: 08/11/16 21:34 Dose: 10 mg Paroxetine HCl (Paxil -) 40 mg PO HS [facility] Last Admin: 08/11/16 21:34 Dose: 40 mg Potassium Chloride (K-Dur -) 20 meq PO DAILY [facility] Last Admin: 08/12/16 10:14 Dose: Not Given Rosuvastatin Calcium (Crestor -) 20 mg PO HS [facility] Last Admin: 08/11/16 21:34 Dose: 20 mg - Objective Vital Signs: Vital Signs Temperature 98.0 F 08/12/16 06:00 Pulse Rate 74 08/12/16 09:07 Respiratory Rate 18 08/12/16 09:07 Blood Pressure 129/68 08/12/16 09:07 O2 Sat by Pulse Oximetry (%) 92 L 08/11/16 21:00 Constitutional: Yes: No Distress, Calm Cardiovascular: Yes: Regular Rate and Rhythm, S1, S2 Respiratory: Yes: Regular, CTA Bilaterally. No: Rales Gastrointestinal: Yes: Normal Bowel Sounds, Soft. No: Palpable Mass, Tenderness Edema: No Neurological: Yes: Alert, Oriented Labs: CBC, BMP 08/10/16 06:50 08/12/16 06:20 Problem List - Problems (1) Fall Assessment/Plan: Neuro consult and f/u appreciated Code(s): W19.XXXA - UNSPECIFIED FALL, INITIAL ENCOUNTER (2) Head trauma Code(s): S09.90XA - UNSPECIFIED INJURY OF HEAD, INITIAL ENCOUNTER (3) Hypokalemia Assessment/Plan: Severe Hypokalemia- resolved with supplementation Renal consult and f/u appreciated- IVF stopped Code(s): E87.6 - HYPOKALEMIA (4) Impaired gait Assessment/Plan: PT eval. Might need Rehab Code(s): R26.9 - UNSPECIFIED ABNORMALITIES OF GAIT AND MOBILITY (5) Dementia Code(s): F03.90 - UNSPECIFIED DEMENTIA WITHOUT BEHAVIORAL DISTURBANCE (6) Hypertension Assessment/Plan: Cont meds. Code(s): I10 - ESSENTIAL (PRIMARY) HYPERTENSION Qualifiers: Hypertension type: other secondary hypertension Qualified Code(s): I15.8 - Other secondary hypertension (7) Hypothyroidism Assessment/Plan: Normal TSH Code(s): E03.9 - HYPOTHYROIDISM, UNSPECIFIED (8) Hyperkalemia Assessment/Plan: K supplementation on hold; To monitor K level; Code(s): E87.5 - HYPERKALEMIA Assessment/Plan DC planning
--- NOTE | 2016-08-12 13:46 | PN ---
Progress Note, Physician History of Present Illness: Pt seen and examined at bedside. She still has poor PO intake. - Current Medication List Current Medications: Active Medications Acetaminophen (Tylenol -) 650 mg PO Q6H PRN PRN Reason: FEVER OR PAIN Amlodipine Besylate (Norvasc -) 2.5 mg PO DAILY [facility] Last Admin: 08/12/16 10:05 Dose: 2.5 mg Budesonide/Formoterol Fumarate (Symbicort 80/4.5mcg -) 1 puff IH BID [facility] Last Admin: 08/12/16 10:05 Dose: 1 inh Divalproex Sodium (Depakote -) 125 mg PO Q6HPO [facility] Last Admin: 08/12/16 12:51 Dose: 125 mg Gabapentin (Neurontin -) 100 mg PO TID [facility] Last Admin: 08/12/16 06:25 Dose: 100 mg Heparin Sodium (Porcine) (Heparin -) 5,000 unit SQ BID [facility] Last Admin: 08/12/16 10:05 Dose: 5,000 unit Levothyroxine Sodium (Synthroid -) 50 mcg PO DAILY@0700 [facility] Last Admin: 08/12/16 06:25 Dose: 50 mcg Memantine (Namenda -) 5 mg PO BID [facility] Last Admin: 08/12/16 10:05 Dose: 5 mg Mirtazapine (Remeron -) 7.[address] [facility] Last Admin: 08/11/16 21:34 Dose: 7.5 mg Montelukast Sodium (Singulair -) [address] [facility] Last Admin: 08/11/16 21:34 Dose: 10 mg Paroxetine HCl (Paxil -) [address] [facility] Last Admin: 08/11/16 21:34 Dose: 40 mg Rosuvastatin Calcium (Crestor -) [address] [facility] Last Admin: 08/11/16 21:34 Dose: 20 mg - Objective Vital Signs: Vital Signs Temperature 98.0 F 08/12/16 06:00 Pulse Rate 74 08/12/16 09:07 Respiratory Rate 18 08/12/16 09:07 Blood Pressure 129/68 08/12/16 09:07 O2 Sat by Pulse Oximetry (%) 92 L 08/12/16 09:00 Constitutional: Yes: Calm Eyes: Yes: Conjunctiva Clear HENT: Yes: Atraumatic Neck: Yes: Supple Cardiovascular: Yes: S1, S2 Respiratory: Yes: CTA Bilaterally Gastrointestinal: Yes: Normal Bowel Sounds, Soft Genitourinary: Yes: Incontinence Musculoskeletal: Yes: Muscle Weakness Edema: No Neurological: Yes: Confusion Labs: CBC, BMP 08/10/16 06:50 08/12/16 06:20 Problem List - Problems (1) Dementia Code(s): F03.90 - UNSPECIFIED DEMENTIA WITHOUT BEHAVIORAL DISTURBANCE (2) FTT (failure to thrive) in adult Code(s): R62.7 - ADULT FAILURE TO THRIVE (3) Hypokalemia Code(s): E87.6 - HYPOKALEMIA (4) Hypothyroidism Code(s): E03.9 - HYPOTHYROIDISM, UNSPECIFIED Assessment/Plan Current Medications Generic Name Dose Route Start Last Admin Trade Name Freq PRN Reason Stop Dose Admin Acetaminophen 650 mg 08/07/16 16:56 Tylenol - PO Q6H PRN FEVER OR PAIN Amlodipine Besylate 2.5 mg 08/06/16 10:00 08/12/16 10:05 Norvasc - PO 2.5 mg DAILY [facility] Administration Budesonide/Formoterol Fumarate 1 puff 08/06/16 10:00 08/12/16 10:05 Symbicort 80/4.5mcg - IH 1 inh BID JOSE ROBERTO Administration Divalproex Sodium 125 mg 08/06/16 07:30 08/12/16 12:51 Depakote - PO 125 mg Q6HPO [facility]ERTO Administration Gabapentin 100 mg 08/06/16 07:30 08/12/16 06:25 Neurontin - PO 100 mg TID JO[facility] ROBERTO Administration Heparin Sodium (Porcine) 5,000 unit 08/07/16 22:00 08/12/16 10:05 Heparin - SQ 5,000 unit BID JO[facility] ROBERTO Administration Levothyroxine Sodium 50 mcg 08/06/16 07:15 08/12/16 06:25 Synthroid - PO 50 mcg DAILY@0700 [facility] Administration Memantine 5 mg 08/06/16 22:00 08/12/16 10:05 Namenda - PO 5 mg BID [facility] Administration Mirtazapine 7.5 mg 08/06/16 22:00 08/11/16 21:34 Remeron - PO 7.5 mg HS JOSE ROBERTO Administration Montelukast Sodium 10 mg 08/06/16 22:00 08/11/16 21:34 Singulair - PO 10 mg HS JOSE ROBERTO Administration Paroxetine HCl 40 mg 08/06/16 22:00 08/11/16 21:34 Paxil - PO 40 mg HS JOSE ROBERTO Administration Rosuvastatin Calcium 20 mg 08/06/16 22:00 08/11/16 21:34 Crestor - PO 20 mg HS JOSE ROBERTO Administration Impression 1. hypokalemia 2. dementia 3. hypothyroidism 4. htn 5. hyperlipidemia Plan - potassium is actually high today - will change fluids to a hypotonic solution - monitor labs - encourage PO intake - will follow Dr Yancey
[2016-08-12] MEDS ORDERED: DEXTROSE 5%-WATER - 1,000 ML IV SCH (14:00)
[2016-08-12] MEDS ORDERED: SODIUM CHLORIDE 1,000 ML IV SCH (16:15)
[2016-08-12] MEDS ORDERED: ROSUVASTATIN CA 10 MG TABLET (FP) ONE (22:18)
[2016-08-12] MEDS: MONTELUKAST NA 10 MG TABLET PO SCH (22:21)
[2016-08-12] MEDS: PARoxetine HCL 20 MG TABLET (FP) PO SCH (22:21)
[2016-08-12] MEDS: MIRTAZAPINE 15 MG TABLET (FP) PO SCH (22:21)
[2016-08-12] MEDS: ROSUVASTATIN CA 20 MG TABLET (FP) PO SCH (22:22)
[2016-08-13] MEDS: DIVALPROEX SODIUM 125 MG TABLET E.C. (FP) PO SCH ×3 (01:22→12:51)
[2016-08-13] MEDS: GABAPENTIN 100 MG CAPSULE (FP) PO SCH ×2 (05:45→13:01)
[2016-08-13] MEDS: LEVOTHYROXINE NA 50 MCG TABLET (FP) PO SCH (06:14)
[2016-08-13 07:43] LABS: CALCIUM 8.5 mg/dL (8.5-10.1); CREATININE 0.9 mg/dL (0.55-1.02)
--- NOTE | 2016-08-13 09:01 | PN ---
Progress Note, Physician History of Present Illness: Pt seen and examined at bedside. She is awake and appears comfortable. - Current Medication List Current Medications: Active Medications Acetaminophen (Tylenol -) 650 mg PO Q6H PRN PRN Reason: FEVER OR PAIN Amlodipine Besylate (Norvasc -) 2.5 mg PO DAILY [facility] Last Admin: 08/12/16 10:05 Dose: 2.5 mg Budesonide/Formoterol Fumarate (Symbicort 80/4.5mcg -) 1 puff IH BID [facility] Last Admin: 08/12/16 22:25 Dose: 1 inh Divalproex Sodium (Depakote -) 125 mg PO Q6HPO [facility] Last Admin: 08/13/16 05:45 Dose: 125 mg Gabapentin (Neurontin -) 100 mg PO TID [facility] Last Admin: 08/13/16 05:45 Dose: 100 mg Heparin Sodium (Porcine) (Heparin -) 5,000 unit SQ BID [facility] Last Admin: 08/12/16 22:21 Dose: 5,000 unit Dextrose (D5w -) 1,000 mls @ 37 mls/hr IV Q24H [facility] Last Admin: 08/12/16 14:05 Dose: 37 mls/hr Levothyroxine Sodium (Synthroid -) 50 mcg PO DAILY@0700 [facility] Last Admin: 08/13/16 06:14 Dose: 50 mcg Memantine (Namenda -) 5 mg PO BID [facility] Last Admin: 08/12/16 22:21 Dose: 5 mg Mirtazapine (Remeron -) 7.5 mg PO [facility] Last Admin: 08/12/16 22:21 Dose: 7.5 mg Montelukast Sodium (Singulair -) 10 mg PO [facility] Last Admin: 08/12/16 22:21 Dose: 10 mg Paroxetine HCl (Paxil -) 40 mg PO [facility] Last Admin: 08/12/16 22:21 Dose: 40 mg Rosuvastatin Calcium (Crestor -) 20 mg PO [facility] Last Admin: 08/12/16 22:22 Dose: 20 mg - Objective Vital Signs: Vital Signs Temperature 98.9 F 08/13/16 08:13 Pulse Rate 75 08/13/16 08:13 Respiratory Rate 22 08/13/16 08:17 Blood Pressure 122/68 08/13/16 08:13 O2 Sat by Pulse Oximetry (%) 96 08/13/16 08:17 Constitutional: Yes: Calm Eyes: Yes: Conjunctiva Clear HENT: Yes: Atraumatic Cardiovascular: Yes: S1, S2 Respiratory: Yes: CTA Bilaterally Gastrointestinal: Yes: Soft Genitourinary: Yes: Incontinence Musculoskeletal: Yes: Muscle Weakness Edema: No Neurological: Yes: Confusion Labs: CBC, BMP 08/10/16 06:50 08/13/16 06:10 Problem List - Problems (1) Dementia Code(s): F03.90 - UNSPECIFIED DEMENTIA WITHOUT BEHAVIORAL DISTURBANCE (2) FTT (failure to thrive) in adult Code(s): R62.7 - ADULT FAILURE TO THRIVE (3) Hypokalemia Code(s): E87.6 - HYPOKALEMIA (4) Hypothyroidism Code(s): E03.9 - HYPOTHYROIDISM, UNSPECIFIED Assessment/Plan Current Medications Generic Name Dose Route Start Last Admin Trade Name Freq PRN Reason Stop Dose Admin Acetaminophen 650 mg 08/07/16 16:56 Tylenol - PO Q6H PRN FEVER OR PAIN Amlodipine Besylate 2.5 mg 08/06/16 10:00 08/12/16 10:05 Norvasc - PO 2.5 mg DAILY JOSE ROBERTO Administration Budesonide/Formoterol Fumarate 1 puff 08/06/16 10:00 08/12/16 22:25 Symbicort 80/4.5mcg - IH 1 inh BID JOSE ROBERTO Administration Divalproex Sodium 125 mg 08/06/16 07:30 08/13/16 05:45 Depakote - PO 125 mg Q6HPO JOSE ROBERTO Administration Gabapentin 100 mg 08/06/16 07:30 08/13/16 05:45 Neurontin - PO 100 mg TID JOSE ROBERTO Administration Heparin Sodium (Porcine) 5,000 unit 08/07/16 22:00 08/12/16 22:21 Heparin - SQ 5,000 unit BID JOSE ROBERTO Administration Dextrose 1,000 mls @ 37 mls/hr 08/12/16 14:00 08/12/16 14:05 D5w - IV 37 mls/hr Q24H JOSE ROBERTO Administration Levothyroxine Sodium 50 mcg 08/06/16 07:15 08/13/16 06:14 Synthroid - PO 50 mcg DAILY@0700 JOSE ROBERTO Administration Memantine 5 mg 08/06/16 22:00 08/12/16 22:21 Namenda - PO 5 mg BID JOSE ROBERTO Administration Mirtazapine 7.5 mg 08/06/16 22:00 08/12/16 22:21 Remeron - PO 7.5 mg HS JOSE ROBERTO Administration Montelukast Sodium 10 mg 08/06/16 22:00 08/12/16 22:21 Singulair - PO 10 mg HS JOSE ROBERTO Administration Paroxetine HCl 40 mg 08/06/16 22:00 08/12/16 22:21 Paxil - PO 40 mg HS JOSE ROBERTO Administration Rosuvastatin Calcium 20 mg 08/06/16 22:00 08/12/16 22:22 Crestor - PO 20 mg HS JOSE ROBERTO Administration Impression 1. hypokalemia 2. dementia 3. hypothyroidism 4. htn 5. hyperlipidemia Plan - potassium is improved - will stop d5w - encourage PO intake - monitor bmp as outpt - hypokalemia likely from decreased total body potassium secondary to poor po intake. Will not restart supplement at this point as pts potassium is on the high side. Check BMP levels in NH and if less than 4 can start 20 mew po daily. Also recommend monitoring magnesium levels as well. - will sign off, reconsult PRN - Than you Dr Yancey
[2016-08-13] MEDS ORDERED: PT OWN MED DRAWER 7, Y5N ONE ×2 (09:12→12:45)
[2016-08-13] MEDS: HEPARIN NA (PORCINE) 5,000 UNITS/ML 1ML VIAL SQ SCH (09:13)
[2016-08-13] MEDS: MEMANTINE HCL 5 MG TABLET (UD) PO SCH (09:13)
[2016-08-13] MEDS: amLODIPine BESYLATE 2.5 MG TABLET (FP) PO SCH (09:13)
[2016-08-13] MEDS: BUDESONIDE/FORMETEROL FUMARATE 80/4.5 mcg INHALER IH SCH (09:13)
[2016-08-13 13:50] VITALS: BP 106/59; PULSE 73; TEMP 97.7
[2016-08-13 14:16] LABS: CALCIUM 8.3 mg/dL (8.5-10.1); CREATININE 0.9 mg/dL (0.55-1.02)
--- NOTE | 2016-08-13 14:28 | DS ---
Physical Examination Vital Signs: Vital Signs Temperature 97.7 F 08/13/16 13:48 Pulse Rate 73 08/13/16 13:48 Respiratory Rate 22 08/13/16 08:17 Blood Pressure 106/59 08/13/16 13:48 O2 Sat by Pulse Oximetry (%) 96 08/13/16 08:17 Findings/Remarks: Pt. w/o SOB, CP, Abd pain, fever. Constitutional: Yes: No Distress, Calm Cardiovascular: Yes: Regular Rate and Rhythm, S1 Respiratory: Yes: Regular, CTA Bilaterally. No: Rales Gastrointestinal: Yes: Normal Bowel Sounds, Soft. No: Tenderness Edema: No Neurological: Yes: Alert Labs: CBC, BMP 08/10/16 06:50 BMP was reviewed Discharge Summary Reason For Visit: POST FALL/DEMENTIA/FAILURE TO THRIVE Current Active Problems Dehydration (Acute) Dementia (Acute) FTT (failure to thrive) in adult (Acute) Facial laceration (Acute) Fall (Acute) Gait difficulty (Acute) Head trauma (Acute) Hyperkalemia (Acute) Hypokalemia (Acute) Hypothyroidism (Acute) Impaired gait (Acute) Hospital Course: Pt came to ER s/p fall, s/p head trauma and right eyebrow stitches; pt. was found to have low potassium; pt. was seen by Neuro (Dr. Lr/ Sandra), Renal (Dr. Yancey). Pt. required several days of potassium replacement. Pt. has dementia and low PO intake. Pt. to be DC'ed today to Rehab. Condition: Fair - Instructions Diet, Activity, Other Instructions: Low cholesterol BMP next week Right eyebrow stitches removal next week Disposition: [facility]F-WAY FACILITY - Home Medications Comprehensive Discharge Medication List: Ambulatory Orders Budesonide/Formeterol Fumarate [SYMBICORT 80/4.5mcg -] 1 inh PO BID 12/08/15 Gabapentin [Neurontin -] 100 mg PO Q8H 12/08/15 Levothyroxine [Synthroid -] 50 mcg PO DAILY 12/08/15 Montelukast Na [Singulair -] 10 mg PO HS 12/08/15 Paroxetine HCl 40 mg PO HS 12/08/15 Rosuvastatin Calcium [Crestor] 20 mg PO HS 12/08/15 Amlodipine Besylate [Norvasc -] 2.5 mg PO DAILY 02/16/16 Divalproex Sodium 125 mg PO QID 02/16/16 Mirtazapine [Remeron -] 7.5 mg PO HS 08/06/16
== END 2016-08-13 16:52 | DRG 913 ==
LOC: JER 00:03 → JERBED 01:02 → UNDOADMIN 01:33 → JERBED 01:33 → J6S 04:11
PROVIDERS: ADMIT Specialist; ATTEND Specialist
PROC: 0HQ1XZZ Repair Face Skin, External Approach (ICD-10-PCS; principal; 2016-08-06)
DX: S09.90XA Unspecified injury of head, initial encounter (principal); G93.41 Metabolic encephalopathy; F03.91 Unspecified dementia, unspecified severity, with behavioral disturbance; S01.411A Laceration without foreign body of right cheek and temporomandibular area, initial encounter; W01.0XXA Fall on same level from slipping, tripping and stumbling without subsequent striking against object, initial encounter; Z91.81 History of falling; Y92.019 Unspecified place in single-family (private) house as the place of occurrence of the external cause; J44.9 Chronic obstructive pulmonary disease, unspecified; K21.9 Gastro-esophageal reflux disease without esophagitis; F32.9 Major depressive disorder, single episode, unspecified; I10 Essential (primary) hypertension; E78.5 Hyperlipidemia, unspecified; R26.81 Unsteadiness on feet; Z86.73 Personal history of transient ischemic attack (TIA), and cerebral infarction without residual deficits; E86.0 Dehydration; R62.7 Adult failure to thrive; E87.6 Hypokalemia; R26.9 Unspecified abnormalities of gait and mobility
CPT/HCPCS: 36415; 70450-TC; 80048; 80053; 82436; 82533; 82550; 82553; 82607; 82747; 83735; 83930; 83935; 84133; 84207; 84252; 84300; 84443; 84446; 84590; 85014; 85025; 85027; 86593; 87040; 87086; 93005; 93010; 95816; 97116-GP; 97161-GP; 99283-25; J1644

== ENCOUNTER 2017-03-07 17:09 | Emergency (ER) | payer OTHER, MEDICARE ==
[2017-03-07 17:35] VITALS: BP 140/76; PULSE 77; TEMP 98.5; BMI 21.0
--- NOTE | 2017-03-07 17:46 | PDOC ---
Attending Attestation - Resident Resident Name: Lavon Smith - ED Attending Attestation I have performed the following: I have examined & evaluated the patient, The case was reviewed & discussed with the resident, I agree w/resident's findings & plan, Exceptions are as noted - HPI HPI: 03/07/17 23:12 76 yo female sent from [place] because of complaint of vaginal discharge/concern for UTI - Physicial Exam PE: 03/07/17 23:12 pleasant 76 yo female who has dementia heent wnl lungs cta b.l cvr [id number] abs no rebound.,no guarding pelvic exam done by Dr Vaughn neuro alert ,moving all extremities - Medical Decision Making 03/08/17 01:10 labs unremarkable, no UTI, benign abdominal exam. Pt discharged
--- NOTE | 2017-03-07 18:12 | PDOC ---
History of Present Illness - General Chief Complaint: Pain, Acute Stated Complaint: PAIN Time Seen by Provider: 03/07/17 17:22 - History of Present Illness Initial Comments: 03/07/17 18:06 The patient is a 76 year old female with a history of stroke, dementia, HTN, HLD , COPD, and hypothyroidism who presents for evaluation of worsening abdominal pain. The patient is accompanied by her who assists in providing the history. The reports a long history of abdominal pain with multiple ct scans and MRIs of the patient's abdomen at [facility] as well as endoscopes. She has seen Dr. Auguste in the past for her GI symptoms. He states that over the past few months since her admission to [facility] , she has been experiencing constipation with hard stools that was relieved with miralax and colace. He states that over the past 2 days she has been experiencing worsening abdominal pain with associated hard stools and intermittent diarrhea as well as increased flatus. They deny any fevers, chills , SOB, chest pain, or changes with urination. Past History - Past Medical History Allergies/Adverse Reactions: Allergies Allergy/AdvReac Type Severity Reaction Status Date / Time prochlorperazine edisylate Allergy Intermediate Verified 03/07/17 18:08 [From Compazine] Home Medications: Ambulatory Orders Budesonide/Formeterol Fumarate [SYMBICORT 80/4.5mcg -] 1 inh PO BID 12/08/15 Gabapentin [Neurontin -] 100 mg PO Q8H 12/08/15 Levothyroxine [Synthroid -] 50 mcg PO DAILY 12/08/15 Montelukast Na [Singulair -] 10 mg PO HS 12/08/15 Rosuvastatin Calcium [Crestor] 20 mg PO HS 12/08/15 Acetaminophen [Tylenol .Regular Strength -] 650 mg PO Q6H PRN #0 tablet Memantine HCl [Namenda -] 5 mg PO BID tab 08/13/16 Cran/Vitc/Mannose/Fos/Bromeln [Cystex Cranberry Liquid] 30 ml PO DAILY 03/07/17 Docusate Sodium [Colace -] 300 mg PO HS 03/07/17 Lactobacillus Acidophilus [Acidophilus] 1 each PO DAILY 03/07/17 Mirtazapine [Remeron -] 7.5 mg PO HS 03/07/17 Omeprazole 20 mg PO DAILY 03/07/17 Polyethylene Glycol 3350 [Miralax (For Daily Use) -] 17 gm PO DAILY 03/07/17 Protein Hydrolysate,Milk [Liquid Protein Fortifier] 30 ml PO DAILY 03/07/17 Quetiapine Fumarate [Seroquel -] 25 mg PO TID 03/07/17 Valproic Acid [Depakene] 500 mg PO BID 03/07/17 Anemia: No Asthma: No Cancer: No Cardiac Disorders: No CVA: Yes (TIA) COPD: Yes CHF: No Dementia: Yes Diabetes: No GI Disorders: Yes (HIATAL HERNIA, gerd) Disorders: No HTN: Yes Hypercholesterolemia: Yes Liver Disease: No Seizures: No Thyroid Disease: Yes - Surgical History Abdominal Surgery: No Appendectomy: Yes Cardiac Surgery: No Cholecystectomy: No Lung Surgery: No Neurologic Surgery: (MIKA ENDARTERECTOMY) Orthopedic Surgery: Yes (neck surgery) - Immunization History Td Vaccination: Yes Immunization Up to Date: Yes - Suicide/Smoking/Psychosocial Hx Smoking Status: No Smoking History: Never smoked Years of Tobacco Use: 40 Have you smoked in the past 12 months: No Number of Cigarettes Smoked Daily: 0 If you are a former smoker, when did you quit?: 1YR Cigars Per Day: 0 Information on smoking cessation initiated: No 'Breaking Loose' booklet given: 04/27/12 Hx Alcohol Use: No Drug/Substance Use Hx: No Substance Use Type: None Hx Substance Use Treatment: No Review of Systems - Review of Systems Comments:: 03/07/17 18:12 Constitutional: No fevers, chills, fatigue, malaise HEENT: No Rhinorrhea, nasal congestion, visual changes Cardiovascular: No chest pain, syncope, palpitations, lightheadedness Respiratory: No Cough, SOB, Hemoptysis, Gastrointestinal: Abdominal pain, constipation, diarrhea. No Nausea, Vomiting, Melena Genitourinary: No Dysuria, Frequency, Urgency, Hesitancy, Hematuria, Flank pain Musculoskeletal: No Myalgia, arthralgia Skin: No rashes, bruising, pallor Neurologic: No Headache, Dizziness, Numbness, Weakness, or Tingling *Physical Exam - Vital Signs Last Vital Signs Temp Pulse Resp BP Pulse Ox 98.5 F 77 18 140/76 100 03/07/17 17:10 03/07/17 17:10 03/07/17 17:10 03/07/17 17:10 03/07/17 17:10 - Physical Exam Comments: 03/07/17 18:13 General Appearance: Nourished. No Apparent Distress HEENT: EOMI, TRENT. No Pharyngeal Erythema, Tonsillar Exudate, Tonsillar Erythema Neck: No Cervical Lymphadenopathy Respiratory/Chest: Lungs Clear, Normal Breath Sounds. No Crackles, Rales, Rhonchi, Wheezing Cardiovascular: Regular Rhythm, Regular Rate. No Murmur, Gallops, Rubs Gastrointestinal/Abdominal: Soft. Hyperactive bowel sounds. Diffuse tenderness to palpation worse in the lower quadrants bilaterally. No Guarding, Rebound, Musculoskeletal: No CVA Tenderness Extremity: Normal Capillary Refill Integumentary: Normal Color, Dry, Warm Neurologic: Alert, Normal Mood/Affect, Normal Response, ED Treatment Course - LABORATORY CBC & Chemistry Diagram: 03/07/17 20:40 03/07/17 20:30 Medical Decision Making - Medical Decision Making 03/07/17 18:16 The patient is a 76 year old female with a history of stroke, dementia, HTN, HLD , COPD, and hypothyroidism who presents for evaluation of worsening abdominal pain. Differential includes but is not limited to: Infectious colitis, constipation, diverticulitis, UTI, metabolic derangement. Given her symptoms of worsening abdominal pain with hard stools, it is possible her symptoms are due to constipation. However we will send a cbc, cmp, ua to evaluate for other etiology and continue to monitor and reassess. *DC/Admit/Observation/Transfer Diagnosis at time of Disposition: Abdominal pain Qualifiers: Abdominal location: left lower quadrant Qualified Code(s): R10.32 - Left lower quadrant pain - Discharge Dispostion Disposition: [facility] Condition at time of disposition: Stable - Referrals Referrals: Drew Bennett [Primary Care Provider] - - Patient Instructions Printed Discharge Instructions: DI for Abdominal Pain-Adult Additional Instructions: Discuss with Dr. Bennett the amount of Tylenol you can receive for her pain. Make sure she is getting plenty of fluids Please return to the emergency department if she develops a fever, her abdominal pain continues to get worse or she develops any new or concerning symptoms. I hope she starts feeling better soon. Print Language: NAURUAN
--- NOTE | 2017-03-07 19:18 | PDOC ---
*Physical Exam - Vital Signs Last Vital Signs Temp Pulse Resp BP Pulse Ox 98.5 F 77 18 140/76 100 03/07/17 17:10 03/07/17 17:10 03/07/17 17:10 03/07/17 17:10 03/07/17 17:10 - Physical Exam General Appearance: Yes: Nourished, Appropriately Dressed. No: Apparent Distress HEENT: positive: EOMI, TRENT, Normal Voice Respiratory/Chest: positive: Lungs Clear, Normal Breath Sounds. negative: Respiratory Distress Cardiovascular: positive: Regular Rhythm, Regular Rate, S1, S2 Female Pelvic Exam: positive: normal external exam Gastrointestinal/Abdominal: positive: Tender (diffuse), Soft. 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 Smith Presenting with abdominal pain Patient is a resident of [facility] with history of COPD, HTN, CVA, Dementia, Constipation Outstanding - Review labs - Review UA - +/- CT Abd Medical Decision Making - Medical Decision Making 03/07/17 19:37 76 yo female with dementia and significant GI history with negative workup sent by halfway for evaluation of worsening abdominal pain Ddx includes but is not limited to infective colitis, UTI, constipation, obstruction, metabolic abnormality 03/07/17 20:53 CBC WBC 7.0 K/mm3 (4.0-10.0) 03/07/17 20:40 RBC 4.18 M/mm3 (3.60-5.2) 03/07/17 20:40 Hgb 12.8 GM/dL (10.7-15.3) D 03/07/17 20:40 Hct 38.3 % (32.4-45.2) D 03/07/17 20:40 MCV 91.6 fl (80-96) 03/07/17 20:40 MCH 30.6 pg (25.7-33.7) 03/07/17 20:40 MCHC 33.4 g/dl (32.0-36.0) 03/07/17 20:40 RDW 15.7 % (11.6-15.6) H D 03/07/17 20:40 Plt Count 148 K/MM3 (134-434) D 03/07/17 20:40 MPV 8.7 fl (7.5-11.1) D 03/07/17 20:40 Neutrophils % 67.4 % (42.8-82.8) 03/07/17 20:40 Lymphocytes % 20.9 % (8-40) 03/07/17 20:40 Monocytes % 9.1 % (3.8-10.2) 03/07/17 20:40 Eosinophils % 2.2 % (0-4.5) 03/07/17 20:40 Basophils % 0.4 % (0-2.0) 03/07/17 20:40 Reviewed and within normal limits CMP Sodium 141 mmol/L (136-145) 03/07/17 20:30 Potassium 5.0 mmol/L (3.5-5.1) 03/07/17 20:30 Chloride 105 mmol/L (98-107) 03/07/17 20:30 Carbon Dioxide 28 mmol/L (21-32) 03/07/17 20:30 Anion Gap 8 (8-16) 03/07/17 20:30 BUN 34 mg/dL (7-18) H D 03/07/17 20:30 Creatinine 1.0 mg/dL (0.55-1.02) 03/07/17 20:30 Creat Clearance w eGFR 54.20 (>60) 03/07/17 20:30 Random Glucose 83 mg/dL (74-106) 03/07/17 20:30 Calcium 9.0 mg/dL (8.5-10.1) 03/07/17 20:30 Total Bilirubin 0.2 mg/dL (0.2-1.0) D 03/07/17 20:30 AST 17 U/L (15-37) 03/07/17 20:30 ALT 16 U/L (12-78) 03/07/17 20:30 Alkaline Phosphatase 93 U/L (45-117) D 03/07/17 20:30 Total Protein 6.6 g/dl (6.4-8.2) D 03/07/17 20:30 Albumin 3.4 g/dl (3.4-5.0) D 03/07/17 20:30 Reviewed and within normal limits Indicates mild dehydration Urine Test Results Urine Color Ltyellow 03/07/17 19:35 Urine Appearance Slcloudy 03/07/17 19:35 Urine pH 8.0 (5.0-8.0) 03/07/17 19:35 Urine Protein Negative (NEGATIVE) 03/07/17 19:35 Urine Glucose (UA) Negative (NEGATIVE) 03/07/17 19:35 Urine Ketones Negative (NEGATIVE) 03/07/17 19:35 Urine Blood Negative (NEGATIVE) 03/07/17 19:35 Urine Nitrite Negative (NEGATIVE) 03/07/17 19:35 Urine Bilirubin Negative (NEGATIVE) 03/07/17 19:35 Reviewed and non concerning 03/07/17 21:34 Patient is afebrile with non-concerning labs and UA. Abdominal exam is relatively benign. Put in call to Dr. Drew Bennett at [facility] 03/07/17 22:18 Spoke with patient and regarding the results. They are comfortable with patient returning to the [place] and returning if her symptoms worsen. Have not gotten return call from Dr. Bennett. 03/07/17 22:[address] Bennett, he said the reason she was sent was a concern for discharge and possible pyurea reported by nurse He did not examine patient but received a report of uretheral discharge 03/07/17 23:09 Performed external vaginal exam involving the mons pubis and the labia majora, labia minora and the uretheral opening. There were no signs of discharge, no erythema no edema no rashes. The exam was benign with no signs of infection. *DC/Admit/Observation/Transfer Diagnosis at time of Disposition: Abdominal pain Qualifiers: Abdominal location: left lower quadrant Qualified Code(s): R10.32 - Left lower quadrant pain - Discharge Dispostion Disposition: [facility] Condition at time of disposition: Stable Admit: No - Referrals Referrals: Drew Bennett [Primary Care Provider] - - Patient Instructions Printed Discharge Instructions: DI for Abdominal Pain-Adult Additional Instructions: Discuss with Dr. Bennett the amount of Tylenol you can receive for her pain. Make sure she is getting plenty of fluids Please return to the emergency department if she develops a fever, her abdominal pain continues to get worse or she develops any new or concerning symptoms. I hope she starts feeling better soon. Print Language: MONGOLIAN
[2017-03-07 19:51] LABS: URINE APPEARANCE SLCLOUDY; URINE BILIRUBIN NEGATIVE (NEGATIVE); URINE BLOOD NEGATIVE (NEGATIVE); URINE COLOR LTYELLOW; URINE GLUCOSE (UA) NEGATIVE (NEGATIVE); URINE KETONE NEGATIVE (NEGATIVE); URINE NITRITE NEGATIVE (NEGATIVE); URINE PROTEIN NEGATIVE (NEGATIVE); URINE UROBILINOGEN NEGATIVE mg/dL (0.2-1.0)
[2017-03-07 20:46] LABS: BASOPHIL 0.4 % (0-2.0); EOSINOPHIL 2.2 % (0-4.5); MCH 30.6 pg (25.7-33.7); MCHC 33.4 g/dl (32.0-36.0); MEAN CELL VOLUME 91.6 fl (80-96); MEAN PLT VOLUME 8.7 fl (7.5-11.1); NEUTROPHILS 67.4 % (42.8-82.8); PLATELET COUNT 148 K/MM3 (134-434); RDW 15.7 % (11.6-15.6)
[2017-03-07 21:24] LABS: ALBUMIN 3.4 g/dl (3.4-5.0); ANION GAP 8 (8-16); CO2 28 mmol/L (21-32); GLUCOSE,RANDOM 83 mg/dL (74-106)
[2017-03-07 21:27] LABS: ALK PHOS 93 U/L (45-117); BILIRUBIN,TOTAL 0.2 mg/dL (0.2-1.0); SGOT/AST 17 U/L (15-37); SGPT/ALT 16 U/L (12-78); TOT PROT 6.6 g/dl (6.4-8.2)
[2017-03-07 22:49] LABS: URINE LEUK ESTERASE 3+ (NEGATIVE)
[2017-03-07 23:10] LABS: URINE BACTERIA FEW /hpf (NEGATIVE)
== END 2017-03-08 00:51 ==
LOC: JER 17:09
DX: R10.32 Left lower quadrant pain (principal); I10 Essential (primary) hypertension; E78.00 Pure hypercholesterolemia, unspecified; F44.9 Dissociative and conversion disorder, unspecified; E03.9 Hypothyroidism, unspecified; F03.90 Unspecified dementia, unspecified severity, without behavioral disturbance, psychotic disturbance, mood disturbance, and anxiety; K21.9 Gastro-esophageal reflux disease without esophagitis; K44.9 Diaphragmatic hernia without obstruction or gangrene; Z86.73 Personal history of transient ischemic attack (TIA), and cerebral infarction without residual deficits
CPT/HCPCS: 36415; 80053; 81003; 81015; 85025; 87086; 99282-25

== ENCOUNTER 2018-07-20 22:41 | Inpatient (IN) | payer OTHER, MEDICARE ==
[2018-07-21 00:09] LABS: HEMATOCRIT 35.6 % (32.4-45.2); MCH 32.9 pg (25.7-33.7); MCHC 33.7 g/dl (32.0-36.0); MEAN CELL VOLUME 97.7 fl (80-96); MEAN PLT VOLUME 10.2 fl (7.5-11.1); PLATELET COUNT 145 K/MM3 (134-434); RBC 3.64 M/mm3 (3.60-5.2); RDW 15.8 % (11.6-15.6); WHITE BLOOD COUNT 6.6 K/mm3 (4.0-10.0)
--- NOTE | 2018-07-21 00:11 | PDOC ---
History of Present Illness - General Chief Complaint: Revisit, Lab Variance Stated Complaint: ABNORMAL LABS Time Seen by Provider: 07/20/18 23:01 History Source: Patient Exam Limitations: Clinical Condition, Dementia - History of Present Illness Initial Comments: 07/21/18 00:06 Patient is a 78F with history of COPD, HTN, hypothyroidism, dementia, HLD, UTIs here today complaining of lab variance. Patient was sent by [facility] for ams, dehydration and hypernatremia to 155. BUN 43 Cr 1.3. Glucose normal. No fevers, chills, nausea, vomiting noted. Patient's family including sons and at bedside, state that her mental status is unchanged. Patient has difficulty eating at baseline requiring puree diet. Patient is unable to contribute to history. Past History - Past Medical History Allergies/Adverse Reactions: Allergies Allergy/AdvReac Type Severity Reaction Status Date / Time prochlorperazine edisylate Allergy Intermediate Verified 07/20/18 23:04 [From Compazine] Home Medications: Ambulatory Orders Budesonide/Formeterol Fumarate [SYMBICORT 80/4.5mcg -] 1 inh PO BID 12/08/15 Gabapentin [Neurontin -] 100 mg PO Q8H 12/08/15 Levothyroxine [Synthroid -] 50 mcg PO DAILY 12/08/15 Montelukast Na [Singulair -] 10 mg PO HS 12/08/15 Rosuvastatin Calcium [Crestor] 20 mg PO HS 12/08/15 Acetaminophen [Tylenol .Regular Strength -] 650 mg PO Q6H PRN #0 tablet Memantine HCl [Namenda -] 5 mg PO BID tab 08/13/16 Cran/Vitc/Mannose/Fos/Bromeln [Cystex Cranberry Liquid] 30 ml PO DAILY 03/07/17 Docusate Sodium [Colace -] 300 mg PO HS 03/07/17 Lactobacillus Acidophilus [Acidophilus] 1 each PO DAILY 03/07/17 Mirtazapine [Remeron -] 7.5 mg PO HS 03/07/17 Omeprazole 20 mg PO DAILY 03/07/17 Polyethylene Glycol 3350 [Miralax (For Daily Use) -] 17 gm PO DAILY 03/07/17 Protein Hydrolysate,Milk [Liquid Protein Fortifier] 30 ml PO DAILY 03/07/17 Quetiapine Fumarate [Seroquel -] 25 mg PO TID 03/07/17 Valproic Acid [Depakene] 500 mg PO BID 03/07/17 Anemia: No Asthma: No Cancer: No Cardiac Disorders: No CVA: Yes (TIA) COPD: Yes CHF: No Dementia: Yes Diabetes: No GI Disorders: Yes (HIATAL HERNIA, gerd) Disorders: No HTN: Yes Hypercholesterolemia: Yes Liver Disease: No Seizures: No Thyroid Disease: Yes - Surgical History Abdominal Surgery: No Appendectomy: Yes Cardiac Surgery: No Cholecystectomy: No Lung Surgery: No Neurologic Surgery: (MIKA ENDARTERECTOMY) Orthopedic Surgery: Yes (neck surgery) - Immunization History Td Vaccination: Yes Immunization Up to Date: Yes - Suicide/Smoking/Psychosocial Hx Smoking Status: No Smoking History: Never smoked Years of Tobacco Use: 40 Have you smoked in the past 12 months: No Number of Cigarettes Smoked Daily: 0 If you are a former smoker, when did you quit?: 1YR Cigars Per Day: 0 Information on smoking cessation initiated: No 'Breaking Loose' booklet given: 04/27/12 Hx Alcohol Use: No Drug/Substance Use Hx: No Substance Use Type: None Hx Substance Use Treatment: No Review of Systems - Review of Systems Able to Perform ROS?: No *Physical Exam - Vital Signs Last Vital Signs Temp Pulse Resp BP Pulse Ox 97.1 F L 82 17 116/84 97 07/20/18 22:45 07/20/18 22:45 07/20/18 22:45 07/20/18 22:45 07/20/18 22:45 - Physical Exam Comments: 07/21/18 00:10 GENERAL: Awake, alert, oriented to self in no acute distress HEAD: No signs of trauma, normocephalic, atraumatic EYES: PERRLA, EOMI, sclera anicteric, conjunctiva clear ENT: Auricles normal inspection, hearing grossly normal, nares patent, oropharynx clear without exudates. Dry mucosa with cracked lips. NECK: Normal ROM, supple, no lymphadenopathy, JVD, or masses LUNGS: No distress, clear to auscultation bilaterally HEART: Regular rate and rhythm, normal S1 and S2, no murmurs, rubs or gallops, peripheral pulses normal and equal bilaterally. ABDOMEN: Soft, nontender, normoactive bowel sounds. No guarding, no rebound. No masses EXTREMITIES: Normal inspection, Normal range of motion, no edema. No clubbing or cyanosis. NEUROLOGICAL: Cranial nerves II through XII grossly intact. Normal speech, no focal sensorimotor deficits SKIN: Warm, Dry, normal turgor, no rashes or lesions noted. Moderate Sedation - Procedure Monitoring Vital Signs: Procedure Monitoring Vital Signs Temperature 97.1 F L 07/20/18 22:45 Pulse Rate 82 07/20/18 22:45 Respiratory Rate 17 07/20/18 22:45 Blood Pressure 116/84 07/20/18 22:45 O2 Sat by Pulse Oximetry (%) 97 07/20/18 22:45 ED Treatment Course - LABORATORY CBC & Chemistry Diagram: 07/20/18 23:59 07/20/18 23:59 - RADIOLOGY Radiology Studies Ordered: Category Date Time Status CXRPORT [CHEST X-RAY PORTABLE*] [RAD] Stat Radiology 07/20/18 23:12 Taken Medical Decision Making - Medical Decision Making 07/21/18 00:11 Patient is 78F with history of htn, dementia, copd, hypothyroidism here today with ams, dehydration, hypernatremia. Vitals normal and stable. Believe patient is volume down. Will fluid resuscitate. *DC/Admit/Observation/Transfer Diagnosis at time of Disposition: Hypernatremia - Discharge Dispostion Condition at time of disposition: Stable Decision to Admit order: Yes - Referrals Referrals: Drew Bennett [Primary Care Provider] - - Patient Instructions - Post Discharge Activity
[2018-07-21 00:33] LABS: ALBUMIN 2.8 g/dl (3.4-5.0); ALK PHOS 76 U/L (45-117); ANION GAP 3 MMOL/L (8-16); BILIRUBIN,TOTAL 0.2 mg/dL (0.2-1); BLOOD UREA NITROGEN 48 mg/dL (7-18); CALCIUM 8.3 mg/dL (8.5-10.1); CHLORIDE 124 mmol/L (98-107); CO2 27 mmol/L (21-32); CREATININE 1.4 mg/dL (0.55-1.3); GLUCOSE,RANDOM 74 mg/dL (74-106); MAGNESIUM 2.7 mg/dL (1.8-2.4); POTASSIUM 4.7 mmol/L (3.5-5.1); SGOT/AST 16 U/L (15-37); SGPT/ALT 19 U/L (13-61); SODIUM 153 mmol/L (136-145); TOT PROT 6.1 g/dl (6.4-8.2)
--- NOTE | 2018-07-21 00:38 | PDOC ---
Attending Attestation - HPI HPI: 07/21/18 00:48 The patient is a 78 year old female with a PMH of COPD, HTN, hypothyroidism, dementia, HLD, UTIs sent in from [facility] for altered mental status and elevated sodium. Patient is demented at baseline and unable to provide further history. The family is at bedside and state the patient has not been eating or drinking for the past couple of days. Family is also complaining that the patient had multiple falls recently. - Physicial Exam PE: 07/21/18 00:52 ADULT PHYSICAL EXAM Constitutional: Awake, alert, pleasantly demented. Eyes: PERRL. EOMI. Conjunctivae are not pale. ENT: (+) Dry lips. (+) Cracked tongue. Neck: Supple. Full ROM. No lymphadenopathy. Cardiovascular: Regular rate. Regular rhythm. S1, S2 regular. Distal pulses are 2+ and symmetric. Pulmonary/Chest: No evidence of respiratory distress. Clear to auscultation bilaterally No wheezing, rales or rhonchi. Abdominal: Soft and non-distended. There is no tenderness. No rebound, guarding or rigidity. No organomegaly. No palpable masses. Good bowel sounds. Musculoskeletal: No edema. No cyanosis. No clubbing. No calf tenderness. Radial/pedal pulses are intact and 2+ bilaterally Skin: (+) No externals signs of trauma Neurological: (+) Responsive to verbal stimuli, can follow simple commands. (+ ) altered. <Aym Pitts - Last Filed: 07/21/18 00:48> - Resident Resident Name: Neo Sullivan - ED Attending Attestation I have performed the following: I have examined & evaluated the patient, The case was reviewed & discussed with the resident, I agree w/resident's findings & plan, Exceptions are as noted - Medical Decision Making 07/21/18 00:35 I, Dr. Dafne Mora, DO, attest that this document has been prepared under my direction and personally reviewed by me in its entirety. I further attest, that it accurately reflects all work, treatment, procedures and medical decision -making performed by me. 07/21/18 00:35 78yo female sent from [facility] for altered ms and elevated sodium -pt is pleasantly demented and unable to provide any history -son at the bedside states the patient has not been eating or drinking, states she has been off balance when she walks and falling -will send labs, head ct, ekg -will start ivf hydration -will admit for ivf hydration, hypernatremia 07/21/18 00:37 pt sodium is 153 will change ivf hydration to 1/2 nss microblog sent to [facility] updated by the resident 07/21/18 01:05 mild haziness to R base on cxr no fever, no elevated wbc, no cough 07/21/18 02:[address] Henry who accepts pt under Dr. Wong <Dafne Mora - Last Filed: 07/21/18 02:24> Heart Score/ECG Review - ECG Intrepretation Comment:: 07/21/18 00:37 sinus at 81, nl axis, nl interval, no acute st/t wave findings <Dafne Mora - Last Filed: 07/21/18 02:24>
[2018-07-21 01:31] LABS: INR 1.08 (0.83-1.09); PROTHROMBIN TIME (PATIENT) 12.7 SEC (9.7-13.0)
[2018-07-21] MEDS: SODIUM CHLORIDE 0.45% 1,000 ML IV SCH ×2 (01:45→14:50)
[2018-07-21 01:51] LABS: URINE APPEARANCE CLEAR; URINE BILIRUBIN NEGATIVE (<2.0 mg/dL); URINE COLOR YELLOW; URINE GLUCOSE (UA) NEGATIVE (NEGATIVE); URINE KETONE NEGATIVE (NEGATIVE); URINE LEUK ESTERASE TRACE (NEGATIVE); URINE NITRITE NEGATIVE (NEGATIVE); URINE PROTEIN NEGATIVE (NEGATIVE); URINE UROBILINOGEN NEGATIVE mg/dL (0.2-1.0)
[2018-07-21] MEDS ORDERED: SODIUM CHLORIDE 0.9% 1000 ML INFUS.BAG IV ONE (02:22)
--- NOTE | 2018-07-21 02:29 | HP ---
CHIEF COMPLAINT: AMS PCP: Marvin HISTORY OF PRESENT ILLNESS: 78 year old woman sent in from [facility] for altered mental status and elevated sodium. Patient is demented at baseline and unable to provide further history. at bedside and state the patient has not been eating or drinking for the past couple of days. ER course was notable for: (1) head ct (2) iv fluid hydration (3) Recent Travel: none PAST MEDICAL HISTORY: COPD, HTN, hypothyroidism, dementia, HLD, UTIs PAST SURGICAL HISTORY: no Social History: unable to obtain Smoking: Alcohol: Drugs: Family History: unable to obtain Allergies prochlorperazine edisylate [From Compazine] Allergy (Intermediate, Verified 23:04) SEIZURE HOME MEDICATIONS: Home Medications Medication Instructions Recorded Budesonide/Formeterol Fumarate 1 inh PO BID 12/08/15 [SYMBICORT 80/4.5mcg -] Gabapentin [Neurontin -] 100 mg PO Q8H 12/08/15 Levothyroxine [Synthroid -] 50 mcg PO DAILY 12/08/15 Montelukast Na [Singulair -] 10 mg PO HS 12/08/15 Rosuvastatin Calcium [Crestor] 20 mg PO HS 12/08/15 Acetaminophen [Tylenol .Regular 650 mg PO Q6H PRN #0 tablet 08/13/16 Strength -] Memantine HCl [Namenda -] 5 mg PO BID tab 08/13/16 Cran/Vitc/Mannose/Fos/Bromeln 30 ml PO DAILY 03/07/17 [Cystex Cranberry Liquid] Docusate Sodium [Colace -] 300 mg PO HS 03/07/17 Lactobacillus Acidophilus 1 each PO DAILY 03/07/17 [Acidophilus] Mirtazapine [Remeron -] 7.5 mg PO HS 03/07/17 Omeprazole 20 mg PO DAILY 03/07/17 Polyethylene Glycol 3350 [Miralax 17 gm PO DAILY 03/07/17 (For Daily Use) -] Protein Hydrolysate,Milk [Liquid 30 ml PO DAILY 03/07/17 Protein Fortifier] Quetiapine Fumarate [Seroquel -] 25 mg PO TID 03/07/17 Valproic Acid [Depakene] 500 mg PO BID 03/07/17 REVIEW OF SYSTEMS- unable to obtain, patient nonverbal PHYSICAL EXAMINATION Vital Signs - 24 hr 07/20/18 22:45 Temperature 97.1 F L Pulse Rate 82 Respiratory 17 Rate Blood Pressure 116/84 O2 Sat by Pulse 97 Oximetry (%) GENERAL: Awake, alert, unresponsive HEAD: Normal with no signs of trauma. EYES: Pupils equal, round and reactive to light, extraocular movements intact, sclera anicteric, conjunctiva clear. EARS, NOSE, THROAT: Ears normal, nares patent, oropharynx clear without exudates. Moist mucous membranes. NECK: Normal range of motion, supple without lymphadenopathy, JVD, or masses. LUNGS: Breath sounds equal, clear to auscultation bilaterally. No wheezes, and no crackles. No accessory muscle use. HEART: Regular rate and rhythm, normal S1 and S2 without murmur, rub or gallop. ABDOMEN: Soft, nontender, not distended, normoactive bowel sounds, no guarding, no rebound, no masses. No hepatomegaly or splenomegaly. MUSCULOSKELETAL: Normal range of motion at all joints. No bony deformities or tenderness. No CVA tenderness. UPPER EXTREMITIES: 2+ pulses, warm, well-perfused. No cyanosis. No clubbing. No peripheral edema. LOWER EXTREMITIES: 2+ pulses, warm, well-perfused. No calf tenderness. No peripheral edema. NEUROLOGICAL: no focal deficits PSYCHIATRIC: nonverbal SKIN: Warm, dry, no rashes noted Laboratory Results - last 24 hr 07/20/18 07/20/18 07/21/18 23:59 23:59 01:05 WBC 6.6 RBC 3.64 Hgb 12.0 Hct 35.6 MCV 97.7 H MCH 32.9 MCHC 33.7 RDW 15.8 H Plt Count 145 MPV 10.2 D PT with INR 12.70 INR 1.08 Sodium 153 H Potassium 4.7 Chloride 124 H Carbon Dioxide 27 Anion Gap 3 L BUN 48 H Creatinine 1.4 H Creat Clearance w eGFR 36.56 Random Glucose 74 Calcium 8.3 L Magnesium 2.7 H Total Bilirubin 0.2 AST 16 ALT 19 Alkaline Phosphatase 76 Total Protein 6.1 L Albumin 2.8 L Urine Color Urine Appearance Urine pH Ur Specific [place] Urine Protein Urine Glucose (UA) Urine Ketones Urine Blood Urine Nitrite Urine Bilirubin Urine Urobilinogen Ur Leukocyte Esterase 07/21/18 01:41 WBC RBC Hgb Hct MCV MCH MCHC RDW Plt Count MPV PT with INR INR Sodium Potassium Chloride Carbon Dioxide Anion Gap BUN Creatinine Creat Clearance w eGFR Random Glucose Calcium Magnesium Total Bilirubin AST ALT Alkaline Phosphatase Total Protein Albumin Urine Color Yellow Urine Appearance Clear Urine pH 6.0 D Ur Specific [place] 1.027 Urine Protein Negative Urine Glucose (UA) Negative Urine Ketones Negative Urine Blood Negative Urine Nitrite Negative Urine Bilirubin Negative Urine Urobilinogen Negative Ur Leukocyte Esterase Trace imaging studies reviewed ASSESSMENT/PLAN: #hypernatremia- likely from insatiable fluid losses and inadequate thirst mechanism. about 3L free water deficits. S/p 1 L of NS in ER and now on maintenance 1/2 NS. -observation -c/w 1/2 NS at 100cc/hr -check bmp q6hrs -monitor other electrolytes #AMS - likely secondary to hypernatremia. Head CT was neg for acute insults. -send TSH -fall precautions -bedrest #dementia -memantine #COPD -c/w home dose symbicort -c/w montelukast #diet - patient to be on puree diet and crushed meds as per , endorsed to nursing #DVT ppx- heparin sc Visit type - Emergency Visit Emergency Visit: Yes ED Registration Date: 07/21/18 Care time: The patient presented to the Emergency Department on the above date and was hospitalized for further evaluation of their emergent condition. - New Patient This patient is new to me today: Yes Date on this admission: 07/21/18 - Critical Care Critical Care patient: No
[2018-07-21 04:25] LABS: EPI CELLS RARE /HPF (FEW); URINE BACTERIA RARE /hpf (NONE SEEN); URINE HYALINE CAST 1 /lpf; URINE MUCUS RARE
[2018-07-21 05:04] VITALS: BMI 21.0
[2018-07-21] MEDS: QUEtiapine FUMARATE 25 MG TABLET (FP) PO SCH ×3 (05:56→21:24)
[2018-07-21] MEDS ORDERED: LEVOTHYROXINE NA 50 MCG TABLET (FP) PO SCH (07:00)
[2018-07-21 07:38] LABS: BASO % 0.2 % (0-2.0); EOS % 5.5 % (0-4.5); HEMATOCRIT 36.3 % (32.4-45.2); HEMOGLOBIN 11.8 GM/dL (10.7-15.3); LYMPH % 27.5 % (8-40); MCH 31.7 pg (25.7-33.7); MCHC 32.6 g/dl (32.0-36.0); MEAN CELL VOLUME 97.2 fl (80-96); MEAN PLT VOLUME 9.8 fl (7.5-11.1); NEUT % 56.8 % (42.8-82.8); PLATELET COUNT 128 K/MM3 (134-434); RBC 3.73 M/mm3 (3.60-5.2); RDW 16.1 % (11.6-15.6); WHITE BLOOD COUNT 5.6 K/mm3 (4.0-10.0)
[2018-07-21 08:29] LABS: ANION GAP 5 MMOL/L (8-16); BLOOD UREA NITROGEN 42 mg/dL (7-18); CHLORIDE 125 mmol/L (98-107); CO2 24 mmol/L (21-32); CREATININE 1.2 mg/dL (0.55-1.3); GLUCOSE,RANDOM 82 mg/dL (74-106); POTASSIUM 4.4 mmol/L (3.5-5.1); SODIUM 154 mmol/L (136-145)
[2018-07-21] MEDS ORDERED: PT OWN MED DRAWER 7, Y5N ONE (09:35)
[2018-07-21] MEDS ORDERED: VALPROIC ACID 250 MG CAPSULE PO SCH (10:00)
--- NOTE | 2018-07-21 10:24 | EKG ---
Test Reason : Blood Pressure : / mmHG Vent. Rate : 081 BPM Atrial Rate : 081 BPM P-R Int : 166 ms QRS Dur : 070 ms QT Int : 388 ms P-R-T Axes : 066 056 026 degrees QTc Int : 450 ms NORMAL SINUS RHYTHM LOW VOLTAGE QRS WHEN COMPARED WITH ECG OF 06-AUG-2016 02:00, T WAVE INVERSION NO LONGER EVIDENT IN ANTERIOR LEADS Confirmed by MELISSA MIMS MD ([id number]) on 07/21/2018 10:23:55 AM Referred By: Confirmed By:MELISSA MIMS MD
[2018-07-21] MEDS: HEPARIN NA (PORCINE) 5,000 UNITS/ML 1ML VIAL SQ SCH ×2 (10:28→21:25)
[2018-07-21] MEDS: BUDESONIDE/FORMETEROL FUMARATE 80/4.5 mcg INHALER IH SCH ×2 (10:29→21:23)
[2018-07-21] MEDS: MEMANTINE HCL 5 MG TABLET (UD) PO SCH ×2 (10:29→21:24)
[2018-07-21] MEDS: PANTOPRAZOLE 20 MG TABLET (FP) PO SCH (10:29)
--- NOTE | 2018-07-21 12:32 | PN ---
Progress Note (short form) - Note Progress Note: pt seen/ examined chart reviewed awake poor historian no distress but periods of agitation eating 25 percent of food on fluids Vital Signs Temp 98.2 F 07/21/18 10:20 Pulse 78 07/21/18 10:20 Resp 18 07/21/18 10:20 BP 125/72 07/21/18 10:20 Pulse Ox 96 07/21/18 02:45 Intake & Output 07/20/18 07/21/18 07/21/18 23:59 11:59 23:59 Intake Total 660 Balance 660 Weight 150 lb 115 lb Intake: IV 300 1/2 Normal Saline 1,000 300 ml @ 100 mls/hr IV ASDIR [facility] Rx#:[id number] Oral 360 Other: Voiding Method Diaper Incontinent Bowel Movement No Height 5 ft 2 in 5 ft 2 in Body Mass Index (BMI) 27.4 21.0 Weight Measurement Method Standing Scale Weight Measurement Method Estimated by Staff Active Medications Budesonide/Formoterol Fumarate (Symbicort 80/4.5mcg -) 1 puff IH BID [facility] Last Admin: 07/21/18 10:29 Dose: 1 puff Divalproex Sodium (Depakote Sprinkle Caps -) 500 mg PO BID [facility] Docusate Sodium (Colace -) 300 mg PO HS [facility] Heparin Sodium (Porcine) (Heparin -) 5,000 unit SQ BID [facility] Last Admin: 07/21/18 10:28 Dose: 5,000 unit Sodium Chloride (1/2 Normal Saline) 1,000 mls @ 100 mls/hr IV ASDIR [facility] Last Admin: 07/21/18 01:45 Dose: 100 mls/hr Levothyroxine Sodium (Synthroid -) 25 mcg PO ONCE ONE Stop: 07/22/18 06:01 Memantine (Namenda -) 5 mg PO BID [facility] Last Admin: 07/21/18 10:29 Dose: 5 mg Mirtazapine (Remeron -) 7.5 mg PO HS [facility] Montelukast Sodium (Singulair -) 10 mg PO HS [facility] Pantoprazole Sodium (Protonix -) 20 mg PO DAILY [facility] Last Admin: 07/21/18 10:29 Dose: 20 mg Quetiapine Fumarate (Seroquel -) 25 mg PO TID [facility] Last Admin: 03/01/19 05:56 Dose: 25 mg Rosuvastatin Calcium (Crestor -) 20 mg PO HS [facility] ROBERTO CBC, BMP 07/21/18 06:30 07/21/18 06:30 Physical Exam Awake. poor historian neck- supple lungs- clear mucosa- moist cvs- s1.,s2 rrr abd - soft ext- no edema a/p Dehydration Dementia Agitation continue fluids decrease synthroid dose as TSH is low change depakote to liquid check level monitor labs daily oob - chair discussed with nursing staff also. will follow Problem List - Problems (1) Hypernatremia Code(s): E87.0 - HYPEROSMOLALITY AND HYPERNATREMIA (2) Dehydration Code(s): E86.0 - DEHYDRATION (3) Dementia Code(s): F03.90 - UNSPECIFIED DEMENTIA WITHOUT BEHAVIORAL DISTURBANCE
[2018-07-21] MEDS: LORazepam 2 MG/ML SDV VIAL IVPUSH PRN ×2 (12:58→21:26)
[2018-07-21] MEDS: DOCUSATE SODIUM 100 MG CAPSULE (FP) PO SCH (21:23)
[2018-07-21] MEDS: VALPROATE SODIUM 250 MG/5 ML UNIT DOSE CUP PO SCH (21:23)
[2018-07-21] MEDS: ROSUVASTATIN CA 20 MG TABLET (FP) PO SCH (21:24)
[2018-07-21] MEDS: MONTELUKAST NA 10 MG TABLET PO SCH (21:24)
[2018-07-21] MEDS: MIRTAZAPINE 15 MG TABLET (FP) PO SCH (21:25)
[2018-07-21] MEDS ORDERED: DIVALPROEX SODIUM 125 MG SPRINKLE CAPS PO SCH (22:00)
[2018-07-22] MEDS: SODIUM CHLORIDE 0.45% 1,000 ML IV SCH (04:08)
[2018-07-22] MEDS ORDERED: LEVOTHYROXINE NA 25 MCG TABLET (FP) PO ONE (06:00)
[2018-07-22] MEDS: QUEtiapine FUMARATE 25 MG TABLET (FP) PO SCH ×3 (06:02→21:46)
[2018-07-22 08:05] LABS: BASO % 0.2 % (0-2.0); EOS % 4.4 % (0-4.5); HEMATOCRIT 39.3 % (32.4-45.2); HEMOGLOBIN 13.1 GM/dL (10.7-15.3); MCH 31.8 pg (25.7-33.7); MCHC 33.3 g/dl (32.0-36.0); MEAN CELL VOLUME 95.5 fl (80-96); MEAN PLT VOLUME 10.2 fl (7.5-11.1); NEUT % 67.4 % (42.8-82.8); PLATELET COUNT 124 K/MM3 (134-434); RBC 4.12 M/mm3 (3.60-5.2); RDW 14.8 % (11.6-15.6); WHITE BLOOD COUNT 5.6 K/mm3 (4.0-10.0)
[2018-07-22 08:39] LABS: ALBUMIN 2.7 g/dl (3.4-5.0); ALK PHOS 80 U/L (45-117); ANION GAP 4 MMOL/L (8-16); BILIRUBIN,TOTAL 0.4 mg/dL (0.2-1); BLOOD UREA NITROGEN 28 mg/dL (7-18); CALCIUM 8.4 mg/dL (8.5-10.1); CHLORIDE 117 mmol/L (98-107); CO2 24 mmol/L (21-32); CREATININE 1.1 mg/dL (0.55-1.3); GLUCOSE,RANDOM 74 mg/dL (74-106); MAGNESIUM 2.3 mg/dL (1.8-2.4); POTASSIUM 4.4 mmol/L (3.5-5.1); SGOT/AST 24 U/L (15-37); SGPT/ALT 17 U/L (13-61); SODIUM 145 mmol/L (136-145); TOT PROT 5.8 g/dl (6.4-8.2)
[2018-07-22] MEDS: MEMANTINE HCL 5 MG TABLET (UD) PO SCH ×2 (09:20→21:46)
[2018-07-22] MEDS: VALPROATE SODIUM 250 MG/5 ML UNIT DOSE CUP PO SCH ×2 (09:20→21:46)
[2018-07-22] MEDS: LORazepam 2 MG/ML SDV VIAL IVPUSH PRN ×3 (09:20→23:09)
[2018-07-22] MEDS: BUDESONIDE/FORMETEROL FUMARATE 80/4.5 mcg INHALER IH SCH ×2 (09:24→21:47)
[2018-07-22] MEDS: HEPARIN NA (PORCINE) 5,000 UNITS/ML 1ML VIAL SQ SCH ×2 (09:24→21:47)
[2018-07-22] MEDS: PANTOPRAZOLE 20 MG TABLET (FP) PO SCH (09:25)
--- NOTE | 2018-07-22 11:50 | DS ---
Physical Examination Vital Signs: Vital Signs Temperature 98.4 F 07/22/18 06:30 Pulse Rate 83 07/22/18 06:30 Respiratory Rate 20 07/22/18 06:30 Blood Pressure 128/65 07/22/18 06:30 O2 Sat by Pulse Oximetry (%) 96 07/21/18 21:00 Findings/Remarks: awake/ comfortable no distress Constitutional: Yes: No Distress, Calm Neck: Yes: Supple Cardiovascular: Yes: Regular Rate and Rhythm Respiratory: Yes: CTA Bilaterally Gastrointestinal: Yes: Soft Edema: No Labs: CBC, BMP 07/22/18 07:00 07/22/18 07:00 Discharge Summary Reason For Visit: HYPERNATREMIA Current Active Problems Hypernatremia (Acute) Hospital Course: admitted for dehydration given fluids tsh also low -- dose decreased -- monitor in 2 weeks overall stable encourge fluids d/c to correction today meds reconcilled discussed with nursing staff also Condition: Improved - Instructions Referrals: Drew Bennett [Primary Care Provider] - Disposition: [facility] - Home Medications Comprehensive Discharge Medication List: Ambulatory Orders Budesonide/Formeterol Fumarate [SYMBICORT 80/4.5mcg -] 1 inh PO BID 12/08/15 Gabapentin [Neurontin -] 100 mg PO Q8H 12/08/15 Montelukast Na [Singulair -] 10 mg PO HS 12/08/15 Rosuvastatin Calcium [Crestor] 20 mg PO HS 12/08/15 Acetaminophen [Tylenol .Regular Strength -] 650 mg PO Q6H PRN #0 tablet Memantine HCl [Namenda -] 5 mg PO BID tab 08/13/16 Cran/Vitc/Mannose/Fos/Bromeln [Cystex Cranberry Liquid] 30 ml PO DAILY 03/07/17 Docusate Sodium [Colace -] 300 mg PO HS 03/07/17 Lactobacillus Acidophilus [Acidophilus] 1 each PO DAILY 03/07/17 Mirtazapine [Remeron -] 7.5 mg PO HS 03/07/17 Omeprazole 20 mg PO DAILY 03/07/17 Polyethylene Glycol 3350 [Miralax 119 gm Btl -] 17 gm PO DAILY 03/07/17 Protein Hydrolysate,Milk [Liquid Protein Fortifier] 30 ml PO DAILY 10/16/17 Quetiapine Fumarate [Seroquel -] 25 mg PO TID 03/07/17 Divalproex Sprinkle [Depakote Sprinkle -] 500 mg PO BID cap.[email or web address] 07/22/18 Heparin - 5,000 unit SQ BID vial 07/22/18 Levothyroxine [Synthroid -] 50 mcg PO DAILY@0700 tablet 07/22/18
[2018-07-22] MEDS: ROSUVASTATIN CA 20 MG TABLET (FP) PO SCH (21:46)
[2018-07-22] MEDS: MONTELUKAST NA 10 MG TABLET PO SCH (21:46)
[2018-07-22] MEDS: DOCUSATE SODIUM 100 MG CAPSULE (FP) PO SCH (21:46)
[2018-07-22] MEDS: MIRTAZAPINE 15 MG TABLET (FP) PO SCH (21:47)
[2018-07-23] MEDS: QUEtiapine FUMARATE 25 MG TABLET (FP) PO SCH ×2 (06:44→14:27)
[2018-07-23 07:30] LABS: ALBUMIN 2.7 g/dl (3.4-5.0); ALK PHOS 89 U/L (45-117); ANION GAP 6 MMOL/L (8-16); BILIRUBIN,TOTAL 0.3 mg/dL (0.2-1); BLOOD UREA NITROGEN 21 mg/dL (7-18); CHLORIDE 115 mmol/L (98-107); CO2 23 mmol/L (21-32); CREATININE 1.2 mg/dL (0.55-1.3); GLUCOSE,RANDOM 78 mg/dL (74-106); POTASSIUM 4.2 mmol/L (3.5-5.1); SGOT/AST 18 U/L (15-37); SGPT/ALT 25 U/L (13-61); SODIUM 144 mmol/L (136-145)
[2018-07-23] MEDS ORDERED: PT OWN MED DRAWER 7, Y5N ONE (09:04)
[2018-07-23] MEDS: HEPARIN NA (PORCINE) 5,000 UNITS/ML 1ML VIAL SQ SCH (09:06)
[2018-07-23] MEDS: MEMANTINE HCL 5 MG TABLET (UD) PO SCH (09:07)
[2018-07-23] MEDS: PANTOPRAZOLE 20 MG TABLET (FP) PO SCH (09:07)
[2018-07-23] MEDS: VALPROATE SODIUM 250 MG/5 ML UNIT DOSE CUP PO SCH (09:07)
[2018-07-23] MEDS: BUDESONIDE/FORMETEROL FUMARATE 80/4.5 mcg INHALER IH SCH (09:10)
--- NOTE | 2018-07-23 11:01 | PN ---
Progress Note (short form) - Note Progress Note: pt comfortable no new events d/c held yesterday per request Vital Signs Temp 98.4 F 07/23/18 10:00 Pulse 88 07/23/18 10:00 Resp 20 07/23/18 10:00 BP 118/66 07/23/18 10:00 Pulse Ox 95 07/22/18 21:00 Intake & Output 07/22/18 07/22/18 07/23/18 11:59 23:59 11:59 Intake Total 1368 1200 100 Balance 1368 1200 100 Intake: IV 1200 600 1/2 Normal Saline 1,000 1200 600 ml @ 100 mls/hr IV ASDIR [facility] OF [facility] Rx#:[id number] Oral 168 600 100 Other: Voiding Method Incontinent Incontinent Incontinent # Unmeasured Voids Void 1 3 Bowel Movement Yes No # Bowel Movements 3 Active Medications Budesonide/Formoterol Fumarate (Symbicort 80/4.5mcg -) 1 puff IH BID [facility] Last Admin: 07/23/18 09:10 Dose: Not Given Docusate Sodium (Colace -) 300 mg PO [facility] Last Admin: 07/22/18 21:46 Dose: 300 mg Heparin Sodium (Porcine) (Heparin -) 5,000 unit SQ BID [facility] Last Admin: 07/23/18 09:06 Dose: 5,000 unit Lorazepam (Ativan Injection -) 0.5 mg IVPUSH Q6H PRN PRN Reason: ANXIETY Last Admin: 07/22/18 23:09 Dose: 0.5 mg Memantine (Namenda -) 5 mg PO BID [facility] Last Admin: 07/23/18 09:07 Dose: 5 mg Mirtazapine (Remeron -) 7.5 mg PO [facility] Last Admin: 07/22/18 21:47 Dose: 7.5 mg Montelukast Sodium (Singulair -) 10 mg PO [facility] Last Admin: 07/22/18 21:46 Dose: 10 mg Pantoprazole Sodium (Protonix -) 20 mg PO DAILY [facility] Last Admin: 07/23/18 09:07 Dose: 20 mg Quetiapine Fumarate (Seroquel -) 25 mg PO TID [facility] Last Admin: 07/23/18 06:44 Dose: 25 mg Rosuvastatin Calcium (Crestor -) 20 mg PO HS [facility] Last Admin: 07/22/18 21:46 Dose: 20 mg Valproate Sodium (Depakene -) 500 mg PO BID [facility] Last Admin: 07/23/18 09:07 Dose: 500 mg CBC, BMP 07/22/18 07:00 07/23/18 06:25 Physical Exam Awake. poor historian neck- supple lungs- clear mucosa- moist cvs- s1.,s2 rrr abd - soft ext- no edema a/p Dehydration Dementia Agitation comfortable stable stable for d/c see detailed d/c summary-- yesterday. Problem List - Problems (1) Hypernatremia Code(s): E87.0 - HYPEROSMOLALITY AND HYPERNATREMIA (2) Dehydration Code(s): E86.0 - DEHYDRATION (3) Dementia Code(s): F03.90 - UNSPECIFIED DEMENTIA WITHOUT BEHAVIORAL DISTURBANCE
[2018-07-23 14:54] VITALS: BP 118/86; PULSE 97; TEMP 98.5
== END 2018-07-23 15:10 | DRG 641 ==
LOC: JER 22:41 → JERBED 07-21 02:13 → J5S 07-21 04:41 → OBSVTOIN 07-21 12:30
PROVIDERS: ADMIT Internal Medicine; ATTEND Internal Medicine
DX: E87.0 Hyperosmolality and hypernatremia (principal); F03.91 Unspecified dementia, unspecified severity, with behavioral disturbance; E86.0 Dehydration; I10 Essential (primary) hypertension; J44.9 Chronic obstructive pulmonary disease, unspecified; E03.9 Hypothyroidism, unspecified; E78.5 Hyperlipidemia, unspecified
CPT/HCPCS: 36415; 70450-TC; 71045-TC-FY; 80048; 80053; 80164; 81003; 81015; 83735; 84443; 85025; 85027; 85610; 87086; 93005; 93010; 99282-25; G0378; J1644; J7030